=== PATIENT | female | born 1935 | race Caucasian/White ===

== ENCOUNTER 2017-09-05 10:00 | Inpatient (IN) | payer MEDICARE, MEDICAID ==
[~2017-09-05] VITALS: Ht 152.4 cm; Wt 46.8 kg
--- OUTSIDE RECORDS SUMMARY | 2017-09-05 12:30 | XMS REPORT | Continuity of Care Document ---
Author Author [facility] Organization [facility] Address Unknown Phone Unavailable Allergies There is no data. Medications There is no data. Problems Date Dx Coded Attending Type Code Diagnosis Diagnosed By 11/25/2014 JODY PRUCELL DO Ot 276.8 12/15/2014 JODY PURCELL DO Ot 401.9 02/25/2015 PRATIMA AU MD Ot R00.2 02/25/2015 PRATIMA AU MD Ot R07.89 02/25/2015 PRATIMA AU MD Ot R09.89 02/25/2015 PRATIMA AU MD Ot R53.83 03/31/2015 PRATIMA AU MD Ot R00.2 03/31/2015 PRATIMA AU MD Ot R07.89 03/31/2015 PRATIMA AU MD Ot R09.89 03/31/2015 PRATIMA AU MD Ot R53.83 Procedures There is no data. Results There is no data. Encounters ACCT No. Visit Date/Time Discharge Status Pt. Type Provider Facility Loc./Unit Complaint [id number] 03/10/2015 09:32:00 03/10/2015 23:59:59 CLS Outpatient PRATIMA AU MD [facility] CARD [id number] 02/05/2015 11:05:00 02/05/2015 23:59:59 CLS Outpatient PRATIMA AU MD [facility] LAB [id number] 11/04/2014 12:27:00 11/04/2014 23:59:59 CLS Outpatient JODY PURCELL DO [facility] LAB [id number] 10/27/2014 12:34:00 10/27/2014 23:59:59 CLS Outpatient JODY PURCELL DO [facility] LAB
--- OUTSIDE RECORDS SUMMARY | 2017-09-05 12:30 | XMS REPORT | Clinical Summary ---
Author Author [facility] Organization [facility] Address Unknown Phone Unavailable Care Team Providers Care Fabricator Artificial Breast Name Role Phone Jesenia Gomez MD Unavailable Unavailable Mirian Castro MD PCP Source Comments Some departments are not documenting in the electronic medical record. If you do not see the information that you expected, contact Release of Information in the Health Information Management department at [phone] for further assistance in locating additional records.[facility] Allergies Active Allergy Reactions Severity Noted Date Comments Amoxicillin ANXIETY 01/30/2014 Aspirin 12/08/2004 Allergy recorded in SMS: ASA Cephalexin 12/08/2004 Allergy recorded in SMS: CEPHALEXIN Epinephrine 12/08/2004 Allergy recorded in SMS: EPINEPHRINE Erythromycin 12/08/2004 Allergy recorded in SMS: EMYCIN Hydrocodone-Acetaminophen 12/08/2004 Allergy recorded in SMS: VICODAN Lactose 12/08/2004 Allergy recorded in SMS: LACTOSE Morphine 10/26/2008 Mupirocin 10/26/2008 Nickel 10/26/2008 Ointment,White (Obsolete) 10/26/2008 MUPINICEN OINTMENT Pentazocine Lactate 10/26/2008 Polyethylene Glycol 10/26/2008 Propoxyphene 10/26/2008 Sms Unclassified Drug 12/08/2004 Allergy recorded in SMS: BISULBIES Tripelennamine 12/08/2004 Allergy recorded in SMS: CHLOR-TRIMENTIN Current Medications Prescription Sig. Disp. Refills Start End Date Status Date vitamins, B complex Take 1 Tab by mouth Active (VITAMIN B COMPLEX) Tab Daily. Ascorbic Acid (VITAMIN C) Take by mouth Daily. Active 1,000 mg Tab ERGOCALCIFEROL (VITAMIN D Take by mouth Daily. Active PO) CALCIUM CARBONATE/MAG Take by mouth. Active CARB (CALCIUM & MAGNESIUM CARBONATES PO) Active Problems Problem Noted Date Osteoporosis 05/21/2009 Overview: 01/29/2014 She broke her hip about a year ago and has had a "partial" replacement. Still has pain in her left thigh. Still not taking anything for osteoporosis. Not exercising. Breast cancer ([facility]) 10/26/2008 Overview: (HPI entered by: Chaim Burnett MD) DIAGNOSIS: [id number], ER/NJ positive, HER-2/renetta negative, infiltrating ductal carcinoma of the right breast. PAST THERAPY: She had a right lumpectomy, sentinel lymph node biopsy, brachytherapy and tamoxifen for about two weeks. Date of diagnosis was 12/18/01. PRESENT THERAPY: Observation. 01/29/2014 She had an emergent mammogram as her primary felt something. Her exam today shows no recurrence and both ultrasound and mammogram are negative. I have offered her survivors clinic and she declined. I will see her in a year with imaging. She has dense breasts so ultrasound is done. 12/24/2014 She had another emergent mammogram as she thought she felt something in her right breast. She felt it as she was having some pain with movement of her arm which has now resolved. Mammogram and ultrasound were fine. Currently BRENDA. Will see in a year with repeat mammogram and ABUS. Resolved Problems Problem Noted Date Resolved Date Other screening mammogram 03/14/2007 05/21/2009 Immunizations Name Dates Previously Given Next Due Pneumococcal Vaccine 05/21/2009 (23-[facility] Adult) Social History Tobacco Use Types Packs/Day Years Used Date Never Smoker Sex Assigned at Date Recorded Not on file Last Filed Vital Signs Vital Sign Reading Time Taken Blood Pressure 141/68 12/24/2014 4:25 PM CDT Pulse 75 12/24/2014 4:25 PM CDT Temperature 36.7 C (98.1 F) 12/24/2014 4:25 PM CDT Respiratory Rate - - Oxygen Saturation 100% 12/24/2014 4:25 PM CDT Inhaled Oxygen - - Concentration Weight 45.5 kg (100 lb 3.2 oz) 12/24/2014 4:25 PM CDT Height 152.4 cm (5') 12/24/2014 4:25 PM CDT Body Mass Index 19.57 12/24/2014 4:25 PM CDT Plan of Treatment Health Maintenance Due Date Last Done Comments PHYSICAL (COMPREHENSIVE) 1940 EXAM PERTUSSIS VACCINE 1944 TETANUS VACCINE 1950 SHINGLES VACCINE 1993 OSTEOPOROSIS SCREENING 1998 PNEUMONIA (PCV13/PPSV23) 05/21/2010 05/21/2009 VACCINES (2 of 2 - PCV13) INFLUENZA VACCINE 01/07/2018 Results Not on filefrom Last 3 Months
[2017-09-05 13:46] VITALS: BP 163/93
--- NOTE | 2017-09-05 14:32 | Occupational Therapy Eval ---
OT Evaluation-General/PLF Medical Diagnosis Admission Date September 05, 2017 at 12:00 Medical Diagnosis: Stress Fracture (Lower Extremity) Onset Date: September 05, 2017 Therapy Diagnosis Therapy Diagnosis: decr self care, weakness, decr funct mob, decr act amrit Precautions Precautions/Isolations: Fall Prevention, Standard Precautions Weight Bear Status Weight Bearing Restriction: Touch Toe Bearing Location Restriction: R LE Referral Physician: Mary Kate Referral Reason: Evaluation/Treatment Medical History Additional Medical History Not available at this time Current History Pt admitted to ARU post recent report that the hardware in her left hip is "loosening and settling" (per pt report). She also reports her ortho doctor feels she may have a stress fracture that is contributing to the hardware issue. She reports her doctor told her to use a walker and "try to keep the weight off her right leg." Pt reports she was having increased difficulty managing at home. Reviewed History: Yes (verbal) Social History Home: Single Level Current Living Status: Alone Entry Into Home: Stairs Without Railing ADL-Prior Level of Function ADL PLOF Comments Pt reported that she was previously able to manage all of her basic self care and also care for her home. She still drives DME/Equipment: Tub/Shower OT Current Status Subjective Pt seen in room, up in bathroom, agreeable to OT. Pain reported 0/10 while sitting Appearance Alert, cooperative Mental Status/Objective Patient Orientation: Person, Place, Time, Situation Current Glasses/Contacts: Yes Hearing Aids: No Dentures/Partials: No Hand Dominance: Left Upper Extremity ROM Grossly WFL bilat Upper Extremity Sensation No problems per patient report Upper Extremity Strength grossly 4/5 bilat ADL-Treatment ADL-Current Pt had toileted with PT but was not following weight bearing restrictions at the time. She also reported that she had dressed, bathed this morning but also with not following precautions. Pt needs to learn modified techniques for managing ADLs with toe touch weight bearing on R LE. Functional [place] Measure 0=Not Assessed/NA 4=Minimal Assistance 1=Total Assistance 5=Supervision or Setup 2=Maximal Assistance 6=Modified [place] 3=Moderate Assistance 7=Complete IndependenceIRFPAI Quality Coding Scale 6 Independent with activity with or without an assistive device 5 Patient requires set up or clean up by helper. Patient completes activity by themselves 4 Supervision or touching assist (CGA). [place] provide cues , steadying assist 3 The helper provides less than half the effort to complete the activity 2 The helper provides more than half the effort to complete the activity 1 Dependent. The helper does all the effort to complete an activity 7 Patient refused to complete or attempt activity 9 The patient did not perform the activity before the current illness or injury 88 Not attempted due to Medical conditions or safety concerns Eating (FIM): 7 (Pt was able to open packages, cut up food, feed herself. No dentures) Eating (QC): 6 Education OT Patient Education: Purpose of tx/functional activities, Rehab process Teaching Recipient: Patient Teaching Methods: Demonstration, Discussion Response to Teaching: Verbalize Understanding, Return Demonstration OT Short Term Goals Short Term Goals Time Frame: Sep 12, 2017 Toilet/Commode Transfer(FIM): 5 Additional Short Term Goals: 1-Demonstrate ADL Tasks, 2-Verbalize Understanding , 3-ImproveStrength/Félix 1=Demonstrate adherence to instructed precautions during ADL tasks. 2=Patient will verbalize/demonstrate understanding of assistive devices/ modifications for ADL. 3=Patient will improve strength/tolerance for activity to enable patient to perform ADL's. OT Spa Coordinator Goals Spa Coordinator Goals Time Frame: Sep 19, 2017 Eating (FIM): 7 Eating (QC): 6 Groomin Oral Hygiene (QC): 6 Bathing(FIM): 6 Shower/Bathe Self (QC): 6 Upper Body Dressing(FIM): 6 Upper Body Dressing (QC): 6 Lower Body Dressing(FIM): 6 Lower Body Dressing (QC): 6 On/Off Footwear (QC): 6 Toileting(FIM): 6 Toileting Hygiene (QC): 6 Toilet/Commode Transfer(FIM): 6 Toilet/Commode Transfer (QC): 6 Shower Transfer(FIM): 6 Additional Goals: 1-Demonstrate ADL Tasks, 2-Verbalize Understanding, 3- ImproveStrength/Félix 1=Demonstrate adherence to instructed precautions during ADL tasks. 2=Patient will verbalize/demonstrate understanding of assistive devices/ modifications for ADL. 3=Patient will improve strength/tolerance for activity to enable patient to perform ADL's. OT Education/Plan Problem List/Assessment Assessment: Decreased Activ Tolerance, Decreased UE Strength, Dependent Transfers, Impaired Funct Balance, Impaired Self-Care Skills Pt would benefit from skilled OT to increase her independence in basic self care to allow her to safely return home Discharge Recommendations Plan/Recommendations: Continue POC Treatment Plan/Plan of Care Treatment,Training & Education: Yes Patient would benefit from OT for education, treatment and training to promote independence in ADL's, mobility, safety and/or upper extremity function for ADL' s. Plan of Care: ADL Retraining, Functional Mobility, Group Exercise/Act as Ind ( education, exercise, functional activities, socialization), UE Funct Exercise/ Act, UE Neuromus Re-Ed/Coord Treatment Duration: Sep 19, 2017 Frequency: At least 5 of 7 days/Wk (IRF) Estimated Hrs Per Day: 1.5 hours per day Agreement: Yes Rehab Potential: Fair Time/GCodes Start Time: 12:45 Stop Time: 13:00 Total Time Billed (hr/min): 15 Billed Treatment Time visit, 15 minutes evaluation moderate intensity EUNICE DONNELLY OT September 05, 2017 14:32
--- NOTE | 2017-09-05 15:00 | ST Cognitive Linguistic Eval ---
Speech Evaluation-General Medical Diagnosis Stress Fracture (Lower Extremity) Therapy Diagnosis Therapy Diagnosis: Cognitive Linguistic Skills WNL Referral Referring Physician: Dr. Denzel Jolly Reason for Referral: Evaluation/Treatment Cognitive Evaluation Medical History Current History Per patient, she experienced a stress fracture "a week or so" ago. The patient reported she was having difficulty with compliance of her weight bearing status and was hopeful to gain strength through a rehabilitation program. Speech PLF-Current Status Prior Level of Function The patient denied prior challenges with speech, language, or cognition. Subjective The patient was seated upright in recliner upon entrance. The patient greeted the clinician and was agreeable to participation in the cognitive evaluation. Language Eval: Auditory Comprehends Simple Yes/No Ques: Functional Indent/Objects Multiple Manrique: Functional Ident/Pics in Multiple Manrique: Functional Follows 1-Step Commands: Functional Follows Complex Directions: Functional Follows General Conversations: Functional Language Eval: Verbal Language Completes Spontaneous Greeting: Functional Produces Auto, Serial Info: Functional Imitates Simple Words/Phrases: Functional Word Finding: Functional Requests Basic Needs: Functional States Basic Personal Info: Functional Expresses Complex Ideas: Functional Cognitive Patient Orientation The patient was independently oriented to month, year, day of week, and location. Objective Cognitive Domain Attention: WNL Memory: WNL Problem Solving: Functional Objective Impression The patient demonstrated cognitive linguistic skills within normal limits. Communication/Social Cognition Comprehension: 6 (Glasses.) Expression: 7 Social Interaction: 6 Problem Solvin Memory: 6 Speech Patient Assess Expression of Ideas/Wants: Expression (4) Understanding Verbal Content: Understands (4) Brief Interview-Mental Status: Yes Repetition of Three Words: Three (3) Temporal Orientation: Year: Correct (3) Temporal Orientation: Month: Accurate within 5 days(2) Temporal Orientation: Day: Correct (1) Recall : Wear to say "Sock": No, could not recall (0) Recall : Color: Yes, no cue required (2) Recall : Bed: Yes, no cue required (2) Speech-Plan Treatment Plan Speech Therapy Treatment Plan: Discontinue ST Evaluation, only. Frequency: Modified [place] (IRF) (No ST warranted.) Estimated Hrs Per Day: Other (No ST warranted.) Rehab Potential: Fair Safety Risks/Education Teaching Recipient: Patient Teaching Methods: Discussion Response to Teaching: Verbalize Understanding Education Topics Provided: Results, Recommendations, Plan of Care Time Speech Therapy Time In: 14:15 Speech Therapy Time Out: 14:30 Total Billed Time: 15 Billed Treatment Time 1, MITCH OLIVERA September 05, 2017 15:00
[2017-09-05 15:13] LABS: MEAN PLATELET VOLUME 11.2 FL (7.4-10.4); RED BLOOD COUNT 4.28 10^6/uL (4.35-5.85); RED CELL DISTRIBUTION WIDTH 14.1 % (10.0-14.5); WHITE BLOOD COUNT 5.6 10^3/uL (4.3-11.0)
--- NOTE | 2017-09-05 15:15 | Therapy Group Daily Note ---
Therapy Daily Group Note Exercises LE Seated Exercise, UE Exercise Other/Notes Pt ambulated using FWW to OT/PT group in [facility]. Group consisted of introductions (name, place, pt to pt questions), socialization, UE/LE seated exercises (pt led), education on car transfers and walker safety. Pt was able to introduce self appropriately and rolled dice for a question to ask peer. Was able to turn choose peer to ask question too. Pt was able to lead a seated exercises and complete others without difficulty. Pt was attentive through education. Pt contributed to conversations throughout group. Pt ambulated back to room using FWW and sat in recliner after group. Call light/phone in reach. All needs met in room. Start Time: 13:00 Stop Time: 14:15 Total Billed Treatment Time: 75 Total Billed Treatment 1-GRP RACHEL SANABRIA September 05, 2017 15:15
[2017-09-05 15:38] LABS: ALANINE AMINOTRANSFERASE 27 U/L (0-55); ALKALINE PHOSPHATASE 81 U/L (40-136); BILIRUBIN,TOTAL 0.4 MG/DL (0.1-1.0); BUN/CREATININE RATIO 30; CALCIUM 9.8 MG/DL (8.5-10.1); CARBON DIOXIDE 24 MMOL/L (21-32); CHLORIDE 101 MMOL/L (98-107); CREATININE SERUM 0.87 MG/DL (0.60-1.30); GFR ESTIMATED > 60; GLUCOSE 101 MG/DL (70-105); SODIUM 135 MMOL/L (135-145); TOTAL PROTEIN 7.5 GM/DL (6.4-8.2)
--- NOTE | 2017-09-05 16:04 | Physical Therapy Evaluation ---
PT Evaluation-General Medical Diagnosis Admission Date September 05, 2017 at 12:00 Medical Diagnosis: Stress Fracture (Lower Extremity) Onset Date: September 05, 2017 Therapy Diagnosis Therapy Diagnosis: weakness; abn gait Precautions Precautions/Isolations: Standard Precautions Weight Bear Status Right Lower Extremity: Right Touch Toe Bearing Left Lower Extremity: Left Full Weight Bearing Referral Physician: Hugo Centeno Reason for Referral: Evaluation/Treatment Medical History Additional Medical History No additional medical history available at this time Current History Pt admitted to ARU post recent report that the hardware in her left hip is "loosening and settling" (per pt report). She also reports her ortho doctor feels she may have a stress fracture that is contributing to the hardware issue. She reports her doctor told her to use a walker and "try to keep the weight off her right leg." Pt reports she was having increased difficulty managing at home. Social History Home: Single Level Current Living Status: Alone Entry Into Home: Stairs Without Railing (but she reports she has things to hold on to) Prior/Core FIM Prior Level of Function Functional [place] Measure 0=Not Assessed/NA 4=Minimal Assistance 1=Total Assistance 5=Supervision or Setup 2=Maximal Assistance 6=Modified [place] 3=Moderate Assistance 7=Complete [place] Bed Mobility: 7 Transfers (B,C,W/C) (FIM): 7 Gait: 6 (used a SPC) pt able to ambulate community distances as well as drive. She was mod indep in her home as well. PT Evaluation-Current Subjective Agreeable to PT. Reports she has been using a cane and a walker at home. Pain Numeric Pain Scale: 0-No Pain Location: No Pain Reported Objective Patient Orientation: Person, Place, Time, Situation Problem Solving: Fair ROM/Strength ROM Lower Extremities WFL Strenght Lower Extremities B LE strength is grossly 4/5 throughout Integumentary/Posture Integumentary Refer to nursing notes. Bowel Incontinence: No Bladder Incontinence: Yes Posture normal and symmetrical Neuromuscular (Tone, Coordination, Reflexes) no noted functional deficits Sensory Vision: Functional Hearing: Functional Hand Dominance: Right Sensation Right Lower Extremit: Intact Sensation Left Lower Extremity: Intact Transfers Functional [place] Measure 0=Not Assessed/NA 4=Minimal Assistance 1=Total Assistance 5=Supervision or Setup 2=Maximal Assistance 6=Modified [place] 3=Moderate Assistance 7=Complete IndependenceIRFPAI Quality Coding Scale 6 Independent with activity with or without an assistive device 5 Patient requires set up or clean up by helper. Patient completes activity by themselves 4 Supervision or touching assist (CGA). [place] provide cues , steadying assist 3 The helper provides less than half the effort to complete the activity 2 The helper provides more than half the effort to complete the activity 1 Dependent. The helper does all the effort to complete an activity 7 Patient refused to complete or attempt activity 9 The patient did not perform the activity before the current illness or injury 88 Not attempted due to Medical conditions or safety concerns Transfers (B, C, W/C) (FIM): 5 Roll Left to Right (QC): 6 bed t/f WC(FIM only if WC use): 5 Sit to Lying (QC): 6 Lying to Sitting/Side of Bed(Q: 6 Sit to Stand (QC): 5 Chair/Bsj-vt-Nvsws Xfer(QC): 5 Car Transfer (QC): 4 Pt is SBA with transfers due to need for cues to maintain TTWB status. Pt tends to put weight through her right LE in standing; but able to correct with cuing. Gait Does the Patient Walk?: Yes Anticipated Mode of Locomotion: Walk Gait (FIM): 2 Distance (FIM): 8=931-37 ft Walk 10 feet (QC): 4 Walk 50 ft with 2 Turns(QC): 4 (CGA and heavy cues to maintain TTWB status) Walk 150 ft (QC): 88 (due to TTWB status; unable to go that far. ) Walking 10ft/uneven surface-QC: 4 Distance: 40 ft Gait Level of Assist: 4 (CGA with heavy cues for TTWB status) Gait Persons Needed: 1 Gait Assistive Device: FWW Comments/Gait Description Pt presented to our unit from transport here by her brother. Upon entering the unit, she was using a SPC and ambulating without assist and putting full weight through her right LE; however, when pt instructed in TTWB and work on maintaining this WB status, her safety and indep level decreased. She was educated in and explained the reasoning for TTWB and she verbalized understainding. In gait training, she preferrred to keep her right foot up in a NWB position, as she remarked it was easier to maintian than TTWB. Distance decreased with TTWB as her UE fatigues with hopping. Stairs Stairs (FIM): 1 #of Steps: 1 Level of Assist: 2 1 Step (curb) (QC): 2 4 Steps (QC): 88 Assistive Device: Walker 12 Steps (QC): 88 max asssist required due to TTWB status. Balance Sitting Static: Good Sitting Dynamic: Good Standing Static: Good Standing Dynamic: Fair Picking up an Object (QC): 88 Assessment/Needs Pt presents with reports of loosening of hardware in right hip. she reports she was told to "try to keep her weight off her right LE", but has been using a cane for ambulation. In a full weight bearing manner (as she presented to the unit), she is mod indep with gait and transfers. However, when instructed in and performance of TTWB, her ability to safely and effectively mobilize decreased. She has decreased functional activity tolerance to hopping and impaired functional balance and strength. She will beneift from skilled PT intervention to address TTWB status and performance of mobility, transfers and safety at this level. Rehab Potential: Good PT Short Term Goals Short Term Goals Time Frame: Sep 12, 2017 Transfers (B,C,W/C) (FIM): 6 Gait (FIM): 4 Gait Assistive Device: FWW PT Aviation Manager Goals Intermediate Goals PT Aviation Manager Goals Time Frame: Sep 20, 2017 Transfers (B,C,W/C) (FIM): 7 Sit to Lying (QC): 6 Lying-Sitting on Side/Bed(QC): 6 Sit to Stand (QC): 6 Roll Left to Right (QC): 6 Chair/Kdi-ua-Ltnob Xfer(QC): 6 Car Transfer (QC): 6 Does the Patient Walk: Yes Gait (FIM): 5 (household exception) Gait distance (FIM): 4=240-53 ft Distance: 50 ft Walk 10 feet (QC): 6 Walk 10ft-Uneven Surface(QC): 6 Walk 50ft with 2 Turns (QC): 6 Walk 150 ft (QC): 9 (too far for her to hop) Gait Assistive Device: FWW Does the Pt use WC or Scooter?: No Stairs (FIM): 5 (household exception) # of Steps: 4 1 Step (curb) (QC): 6 4 Steps (QC): 6 12 Steps (QC): 88 Picking up an Object (QC): 4 Pt to be at a household level for functional gait and transfers with maintenance of TTWB status PT Plan Problem List Problem List: Activity Tolerance, Functional Strength, Safety, Balance, Gait, Transfer, Bed Mobility Treatment/Plan Treatment Plan: Continue Plan of Care Treatment Plan: Bed Mobility, Education, Functional Activity Félix, Functional Strength, Group Therapy, Gait, Safety, Therapeutic Exercise, Transfers Treatment Duration: Sep 20, 2017 Frequency: At least 5 of 7 days/Wk (IRF) Estimated Hrs Per Day: 1.5 hours per day Patient and/or Family Agrees t: Yes Safety Risks/Education Patient Education: Reviewed Precautions (TTWB), Safety Issues Teaching Recipient: Patient Teaching Methods: Demonstration, Discussion Response to Teaching: Reinforcement Needed Time/GCodes Time In: 1215 Time Out: 1245 Total Billed Treatment Time: 30 Total Billed Treatment visit EVM 30 RACHEL DAVIS PT September 05, 2017 16:03
--- NOTE | 2017-09-05 16:28 | Occupational Ther Daily Note ---
OT Current Status-Daily Note Subjective Pt seen in room, up in recliner, agreeable to OT. No pain mentioned. Appearance Alert, cooperative Mental Status/Objective Functional [place] Measure 0=Not Assessed/NA 4=Minimal Assistance 1=Total Assistance 5=Supervision or Setup 2=Maximal Assistance 6=Modified [place] 3=Moderate Assistance 7=Complete [place] ADL-Treatment Reviewed instruction from PT on weight bearing with FWW with patient and how it applies to toileting. She has determined that she is better able to comply with restrictions if she doesn't put any weight on R UE. She was able to get up from recliner with SBA, FWW, pushing up with arms. She walked slowly with CGA, FWW to bathroom (about 15-20 feet to toilet), following WB status. She needed min assist and skilled cues for hand placement to get on/off tall toilet, with grab bar on L side. Placed BSC over toilet, with arms on both sides, and she was able to come up off BSC with SBA, FWW, cues for hand placement. Pt walked back to room with CGA, FWW. Pt educ to call for help for toileting and other activities where she would be walking. Ct educ that she could have a chair with arms in the bathroom to use for sitting on to brush teeth, comb hair,etc. Education to radiology staff on patient precautions and transfer technique. Pt left room with radiology at end of tx. Functional [place] Measure 0=Not Assessed/NA 4=Minimal Assistance 1=Total Assistance 5=Supervision or Setup 2=Maximal Assistance 6=Modified [place] 3=Moderate Assistance 7=Complete IndependenceIRFPAI Quality Coding Scale 6 Independent with activity with or without an assistive device 5 Patient requires set up or clean up by helper. Patient completes activity by themselves 4 Supervision or touching assist (CGA). [place] provide cues , steadying assist 3 The helper provides less than half the effort to complete the activity 2 The helper provides more than half the effort to complete the activity 1 Dependent. The helper does all the effort to complete an activity 7 Patient refused to complete or attempt activity 9 The patient did not perform the activity before the current illness or injury 88 Not attempted due to Medical conditions or safety concerns Toilet/Commode Transfer (FIM): 4 Toilet Transfer (QC): 4 Education OT Patient Education: Modified ADL techniques, Progress toward Goal/Update tx plan, Purpose of tx/functional activities, Use of adapted equipment Teaching Recipient: Patient Teaching Methods: Demonstration, Discussion Response to Teaching: Verbalize Understanding, Return Demonstration, Reinforcement Needed OT Short Term Goals Short Term Goals Time Frame: Sep 12, 2017 Toilet/Commode Transfer(FIM): 5 Additional Short Term Goals: 1-Demonstrate ADL Tasks, 2-Verbalize Understanding , 3-ImproveStrength/Félix 1=Demonstrate adherence to instructed precautions during ADL tasks. 2=Patient will verbalize/demonstrate understanding of assistive devices/ modifications for ADL. 3=Patient will improve strength/tolerance for activity to enable patient to perform ADL's. OT Detention Goals Real Estate Firm Manager Goals Time Frame: Sep 19, 2017 Eating (FIM): 7 Eating (QC): 6 Groomin Oral Hygiene (QC): 6 Bathing(FIM): 6 Shower/Bathe Self (QC): 6 Upper Body Dressing(FIM): 6 Upper Body Dressing (QC): 6 Lower Body Dressing(FIM): 6 Lower Body Dressing (QC): 6 On/Off Footwear (QC): 6 Toileting(FIM): 6 Toileting Hygiene (QC): 6 Toilet/Commode Transfer(FIM): 6 Toilet/Commode Transfer (QC): 6 Shower Transfer(FIM): 6 Additional Goals: 1-Demonstrate ADL Tasks, 2-Verbalize Understanding, 3- ImproveStrength/Félix 1=Demonstrate adherence to instructed precautions during ADL tasks. 2=Patient will verbalize/demonstrate understanding of assistive devices/ modifications for ADL. 3=Patient will improve strength/tolerance for activity to enable patient to perform ADL's. OT Education/Plan Problem List/Assessment Pt would benefit from skilled OT to increase her independence in basic self care to allow her to safely return home Discharge Recommendations Plan/Recommendations: Continue POC Treatment Plan/Plan of Care Patient would benefit from OT for education, treatment and training to promote independence in ADL's, mobility, safety and/or upper extremity function for ADL' s. Plan of Care: ADL Retraining, Functional Mobility, Group Exercise/Act as Ind ( education, exercise, functional activities, socialization), UE Funct Exercise/ Act, UE Neuromus Re-Ed/Coord Treatment Duration: Sep 19, 2017 Frequency: At least 5 of 7 days/Wk (IRF) Estimated Hrs Per Day: 1.5 hours per day Agreement: Yes Rehab Potential: Fair Time/GCodes Start Time: 15:15 Stop Time: 15:30 Total Time Billed (hr/min): 15 Billed Treatment Time visit, 15 minutes EUNICE GONZALEZ OT September 05, 2017 16:28
[2017-09-05 16:33] VITALS: BP 157/73
--- NOTE | 2017-09-05 16:39 | Diagnostic Imaging Report ---
Indication: Lower respiratory infection. PA and lateral chest Heart size and pulmonary vascularity are normal. Lungs are clear. There are no effusions or pneumothoraces. Impression: Negative chest. Dictated by: Dictated on workstation # [id number]
--- NOTE | 2017-09-05 16:43 | Diagnostic Imaging Report ---
INDICATION: History of a right hip replacement approximately 5 years ago. Unable to bear weight on right lower extremity. TECHNIQUE: AP pelvis along with 2 views right hip at 4:01 PM CORRELATION STUDY: None FINDINGS: Postop change of unipolar hip arthroplasty is present. Hardware appearing to be intact. Slight thinning of the outer lateral cortex is noted proximally. Also slight thinning of the cortex near the distal prosthesis posteriorly. A definitive loosening however is otherwise suggested. No acute fracture. Left hip joint fairly well-maintained. The remainder of the pelvis is intact with pectineal lines and obturator rings preserved. There is degenerative change visualized lower lumbar spine with asymmetric disc space during along the left aspect of L4-5 and L5-S1 level endplate sclerosis. 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 No definitive evidence for fracture or loosening. However, correlation with previous radiographs would be recommended if available. Dictated by: Dictated on workstation # [id number]
[2017-09-05] MEDS ORDERED: RT-ALBUTEROL SULF 2.5 MG/3 ML PRE-MIX VIAL ONE (19:08)
--- NOTE | 2017-09-05 19:10 | History & Physicial ---
History of Present Illness History of Present Illness Reason for visit/HPI Patient was seen by orthopedic on 08/01/19 18. 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 Patient has new onset of right thigh pain. X-ray at that time showed evidence of glucose them with remodeling of the proximal femur radiolucent lines around the proximal cement mantle and offset between the tip of the stem in the distal mantle Date of Admission September 05, 2017 at 12:00 Time Seen by Provider: 19:05 I consulted on this patient on 09/05/17 19:05 Attending Physician Denzel Jolly MD Admitting Physician Leandro Hartmann DO Consult Allergies and Home Medications Patient Home Medication List Home Medication List Reviewed: Yes Past Znurmcc-Jajjxx-Pschal Hx Patient Social History Employed/Student: retired Surgeries Breast, Hysterectomy Constitutional: weakness EENTM: other (Allergies with nose running) Respiratory: cough, other (Bronchitis getting better) Cardiovascular: no symptoms reported Gastrointestinal: no symptoms reported Genitourinary: no symptoms reported Physical Exam Vital Signs Vital Signs - First Documented 09/05/17 13:46 Temp 97.5 Pulse 71 Resp 16 B/P (MAP) 163/93 (116) Pulse Ox 97 O2 Delivery Room Air Capillary Refill : General Appearance: No Apparent Distress, Thin Eyes: Bilateral Eye Normal Inspection HEENT: Normal ENT Inspection Neck: Full Range of Motion, Normal Inspection Respiratory: Other (Congestion) Cardiovascular: Regular Rate, Rhythm, No Murmur Gastrointestinal: Non Tender, Soft Assessment/Plan Assessment and Plan Orthopedic problem. Pain in the right hip. Bronchitis last week. Sinusitis. Loose exam with femur Admission Diagnosis Admission Status: Inpatient Order (span 2 midnights) Reason for Inpatient Admission: Difficulty in ambulating. Right hip pain. Bipolar prosthesis right hip. LEANDRO HARTMANN DO September 05, 2017 19:10
[2017-09-05] MEDS: RT-ALBUTEROL SULF 2.5 MG/3 ML PRE-MIX VIAL INH SCH (21:34)
[2017-09-05] MEDS ORDERED: RT-ALBUTEROL SULF 2.5 MG/3 ML PRE-MIX VIAL INH SCH (22:00)
[2017-09-06 06:00] VITALS: BP 157/69
--- NOTE | 2017-09-06 08:37 | Progress Note (SOAP) ---
Subjective Time Seen by Provider: 08:30 Subjective/Events-last exam Sinuses doing better this morning with it treatments. Patient breathing better today with the treatments. Patient To do bone scan.have patient toe-touch weightbearing consult with orthopedics. Objective Exam Vital Signs Date Time Temp Pulse Resp B/P (MAP) Pulse Ox O2 Delivery O2 Flow Rate FiO2 09/06/17 06:00 97.9 64 17 157/69 (98) 97 Room Air 09/05/17 21:35 95 Room Air 09/05/17 21:00 95 Room Air 09/05/17 16:33 96.4 71 16 157/73 (101) 98 Room Air 09/05/17 15:30 Room Air 09/05/17 13:46 97.5 71 16 163/93 (116) 97 Room Air I & O 09/06/17 07:00 Intake Total 300 ml Balance 300 ml Capillary Refill : General Appearance: No Apparent Distress, Thin Results Lab Laboratory Tests 09/05/17 15:06: White Blood Count 5.6, Red Blood Count 4.28L, Hemoglobin 13.0, Hematocrit 39, Mean Corpuscular Volume 90, Mean Corpuscular Hemoglobin 30, Mean Corpuscular Hemoglobin Concent 34, Red Cell Distribution Width 14.1, Platelet Count 235, Mean Platelet Volume 11.2H, Sodium Level 135, Potassium Level 4.0, Chloride Level 101, Carbon Dioxide Level 24, Anion Gap 10, Blood Urea Nitrogen 26H, Creatinine 0.87, Estimat Glomerular Filtration Rate > 60, BUN/Creatinine Ratio 30, Glucose Level 101, Calcium Level 9.8, Total Bilirubin 0.4, Aspartate Amino Transf (AST/SGOT) 27, Alanine Aminotransferase (ALT/SGPT) 27, Alkaline Phosphatase 81, Total Protein 7.5, Albumin 4.0 Assessment/Plan Assessment/Plan Assess & Plan/Chief Complaint Right hip problem. To be evaluated by orthopedic Clinical Quality Measures Admission Status Admission Dx Orthopedic problem. Pain in the right hip. Bronchitis last week. Sinusitis. Loose exam with femur DVT/VTE Risk/Contraindication: Risk Factor Score Per Nursin RFS Level Per Nursing on Admit: 2=Moderate MAG LI DO September 06, 2017 08:37
--- NOTE | 2017-09-06 09:17 | Physical Therapy Daily Note ---
PT Daily Note-Current Subjective Agreeble to PT. no complaints. Mental Status Patient Orientation: Person, Place, Time, Situation Transfers Functional [place] Measure 0=Not Assessed/NA 4=Minimal Assistance 1=Total Assistance 5=Supervision or Setup 2=Maximal Assistance 6=Modified [place] 3=Moderate Assistance 7=Complete IndependenceIRFPAI Quality Coding Scale 6 Independent with activity with or without an assistive device 5 Patient requires set up or clean up by helper. Patient completes activity by themselves 4 Supervision or touching assist (CGA). [place] provide cues , steadying assist 3 The helper provides less than half the effort to complete the activity 2 The helper provides more than half the effort to complete the activity 1 Dependent. The helper does all the effort to complete an activity 7 Patient refused to complete or attempt activity 9 The patient did not perform the activity before the current illness or injury 88 Not attempted due to Medical conditions or safety concerns Weight Bearing Right Lower Extremity: Right Touch Toe Bearing Left Lower Extremity: Left Full Weight Bearing Treatments Spent much time educating and practicing TTWB right LE. Demonstrated what it looks like and had pt practice ambulating with TTWB. She notes she prefers to hold her foot up rather than touch her toes. Pt was able to ambulate 40 ft with FWW in a NWB fashion. Assessment After much education and demonstration, pt seemed to understand TTWB and was able to maintain it for a short distance. PT Short Term Goals Short Term Goals Time Frame: Sep 12, 2017 Transfers (B,C,W/C) (FIM): 6 Gait (FIM): 4 Gait Assistive Device: FWW PT Demolition Specialist Goals Demolition Specialist Goals PT Demolition Specialist Goals Time Frame: Sep 20, 2017 Transfers (B,C,W/C) (FIM): 7 Sit to Lying (QC): 6 Lying-Sitting on Side/Bed(QC): 6 Sit to Stand (QC): 6 Roll Left to Right (QC): 6 Chair/Byr-vv-Jeter Xfer(QC): 6 Car Transfer (QC): 6 Does the Patient Walk: Yes Gait (FIM): 5 (household exception) Gait distance (FIM): 2=619-21 ft Distance: 50 ft Walk 10 feet (QC): 6 Walk 10ft-Uneven Surface(QC): 6 Walk 50ft with 2 Turns (QC): 6 Walk 150 ft (QC): 9 (too far for her to hop) Gait Assistive Device: FWW Does the Pt use WC or Scooter?: No Stairs (FIM): 5 (household exception) # of Steps: 4 1 Step (curb) (QC): 6 4 Steps (QC): 6 12 Steps (QC): 88 Picking up an Object (QC): 4 PT Plan Problem List Problem List: Activity Tolerance, Functional Strength, Safety, Balance, Gait, Transfer, Bed Mobility Treatment/Plan Treatment Plan: Continue Plan of Care Treatment Plan: Bed Mobility, Education, Functional Activity Félix, Functional Strength, Group Therapy, Gait, Safety, Therapeutic Exercise, Transfers Treatment Duration: Sep 20, 2017 Frequency: At least 5 of 7 days/Wk (IRF) Estimated Hrs Per Day: 1.5 hours per day Patient and/or Family Agrees t: Yes Safety Risks/Education Patient Education: Reviewed Precautions Teaching Recipient: Patient Teaching Methods: Demonstration, Discussion Response to Teaching: Reinforcement Needed Time/GCodes Time In: 1430 Time Out: 1500 Total Billed Treatment Time: 30 Total Billed Treatment This is a late entry for visit date 09/05/17 visit GT 30 RACHEL DAVIS PT September 06, 2017 09:17
[2017-09-06] MEDS ORDERED: CHOL400C9 PO ×2 (09:28)
[2017-09-06] MEDS ORDERED: VITA1TAB17 PO (09:30)
[2017-09-06] MEDS ORDERED: ASCO-262 PO (09:30)
[2017-09-06] MEDS ORDERED: CALC-472 PO ×2 (09:30)
--- NOTE | 2017-09-06 10:39 | Physical Therapy Daily Note ---
PT Daily Note-Current Subjective Agreeable to PT. Pt reports she only has sandles to wear at home. Pt expresses concern as to how she will grocery shop and cook at home. Pain Numeric Pain Scale: 2 Location: Right Location Body Site: Thigh Pain Description: Ache (sore) Mental Status Patient Orientation: Person, Place, Time, Situation Transfers Functional [place] Measure 0=Not Assessed/NA 4=Minimal Assistance 1=Total Assistance 5=Supervision or Setup 2=Maximal Assistance 6=Modified [place] 3=Moderate Assistance 7=Complete IndependenceIRFPAI Quality Coding Scale 6 Independent with activity with or without an assistive device 5 Patient requires set up or clean up by helper. Patient completes activity by themselves 4 Supervision or touching assist (CGA). [place] provide cues , steadying assist 3 The helper provides less than half the effort to complete the activity 2 The helper provides more than half the effort to complete the activity 1 Dependent. The helper does all the effort to complete an activity 7 Patient refused to complete or attempt activity 9 The patient did not perform the activity before the current illness or injury 88 Not attempted due to Medical conditions or safety concerns Transfers (B, C, W/C) (FIM): 6 Roll Left to Right (QC): 6 Supine to/from Sit: 7 Sit to/from Stand: 6 Sit to Lying (QC): 6 Sit to Stand (QC): 6 (uses the sink to pull up at times. ) Chair/Yza-mr-Uaqvq Xfer(QC): 6 (FWW) Weight Bearing Right Lower Extremity: Right Touch Toe Bearing Left Lower Extremity: Left Full Weight Bearing Per physician office in [place] (Dr. Kim) "limit WB on the right LE" Gait Training Does the Patient Walk?: Yes Gait (FIM): 2 Distance (FIM): 1=up to 49 ft Distance: 40 ft x 4 Gait Assistive Device: FWW Ambulated short distances with fWW, TTWB right with SBA for safety. Pt able to maintian TTWB status but fatigues quickly. Actually, she prefers to NWB so she holds her foot up. Exercises Supine Ex: Ankle pumps (x15), Quad Set (x15), Heel Slides (x10), Short Arc Quads (x15), Straight leg raise (x5), Hip abd/add LE ther ex to facilitate LE strength for improved functional mobility. Treatments Multiple sit to stand transfers at the sink for brushing her teeth and washing her hands and face; this focused on standing functional static and dynamic balance to perform self care activities. Assessment Current Status: Good Progress Pt doing well with WB status. She is concerned how she will manage at home. PT Short Term Goals Short Term Goals Time Frame: Sep 12, 2017 Transfers (B,C,W/C) (FIM): 6 Gait (FIM): 4 Gait Assistive Device: FWW PT Spout Tender Goals Half-Way Goals PT Spout Tender Goals Time Frame: Sep 20, 2017 Transfers (B,C,W/C) (FIM): 7 Sit to Lying (QC): 6 Lying-Sitting on Side/Bed(QC): 6 Sit to Stand (QC): 6 Roll Left to Right (QC): 6 Chair/Fcd-cb-Uruhz Xfer(QC): 6 Car Transfer (QC): 6 Does the Patient Walk: Yes Gait (FIM): 5 (household exception) Gait distance (FIM): 5=543-09 ft Distance: 50 ft Walk 10 feet (QC): 6 Walk 10ft-Uneven Surface(QC): 6 Walk 50ft with 2 Turns (QC): 6 Walk 150 ft (QC): 9 (too far for her to hop) Gait Assistive Device: FWW Does the Pt use WC or Scooter?: No Stairs (FIM): 5 (household exception) # of Steps: 4 1 Step (curb) (QC): 6 4 Steps (QC): 6 12 Steps (QC): 88 Picking up an Object (QC): 4 PT Plan Problem List Problem List: Activity Tolerance, Functional Strength, Safety, Balance, Gait, Transfer, Bed Mobility Treatment/Plan Treatment Plan: Continue Plan of Care Treatment Plan: Bed Mobility, Education, Functional Activity Félix, Functional Strength, Group Therapy, Gait, Safety, Therapeutic Exercise, Transfers Treatment Duration: Sep 20, 2017 Frequency: At least 5 of 7 days/Wk (IRF) Estimated Hrs Per Day: 1.5 hours per day Patient and/or Family Agrees t: Yes Safety Risks/Education Patient Education: Transfer Techniques, Reviewed Precautions, Safety Issues Teaching Recipient: Patient Teaching Methods: Demonstration, Discussion Response to Teaching: Reinforcement Needed Time/GCodes Time In: 920 Time Out: 1030 Total Billed Treatment Time: 70 Total Billed Treatment visit EX 25 NM 25 GT 20 RACHEL DAVIS PT September 06, 2017 10:39
[2017-09-06] MEDS ORDERED: MAG CARB PO SCH ×2 (12:00→18:00)
[2017-09-06] MEDS ORDERED: CALCIUM CARBONATE PO SCH ×2 (12:00→18:00)
[2017-09-06] MEDS ORDERED: [UNRECOGNIZED DRUG - OTHER] PO SCH (12:00)
[2017-09-06] MEDS: ASCORBIC ACID (VIT C) 500 MG TABLET PO SCH ×2 (12:34→21:48)
[2017-09-06] MEDS: VITAMIN D3 400 UNITS (CHOLECALCIFEROL) TABLET PO SCH ×2 (12:34→17:33)
--- NOTE | 2017-09-06 13:21 | Physical Therapy Daily Note ---
PT Daily Note-Current Subjective Agreeable to PT. Pain Location: Right Location Body Site: Thigh Pain Description: Ache (sore) Comment: applied a cold pack post treatment Transfers Functional [place] Measure 0=Not Assessed/NA 4=Minimal Assistance 1=Total Assistance 5=Supervision or Setup 2=Maximal Assistance 6=Modified [place] 3=Moderate Assistance 7=Complete IndependenceIRFPAI Quality Coding Scale 6 Independent with activity with or without an assistive device 5 Patient requires set up or clean up by helper. Patient completes activity by themselves 4 Supervision or touching assist (CGA). [place] provide cues , steadying assist 3 The helper provides less than half the effort to complete the activity 2 The helper provides more than half the effort to complete the activity 1 Dependent. The helper does all the effort to complete an activity 7 Patient refused to complete or attempt activity 9 The patient did not perform the activity before the current illness or injury 88 Not attempted due to Medical conditions or safety concerns Sit to stand with SBA x multiple attempts throughout the treatment. Toileted with SBA for transfers, clothing and pericare. Weight Bearing Right Lower Extremity: Right Touch Toe Bearing Left Lower Extremity: Left Full Weight Bearing Per physician office in [place] (Dr. Kim) "limit WB on the right LE" Gait Training Does the Patient Walk?: Yes Gait (FIM): 2 Gait Assistive Device: FWW 40 ft x 4 TTWB with SBA. Exercises NuStep Minutes: 5 (to increase functional strength.) NuStep Workload: 1 (no resistance; focus on using UE when pushing with the right LE. ) Treatments Attempted Nu Step due to physician noted that remarked pt could "limit weight bearing" through the right LE. Assessment Current Status: Good Progress Progressing with functional mobility. PT Short Term Goals Short Term Goals Time Frame: Sep 12, 2017 Transfers (B,C,W/C) (FIM): 6 Gait (FIM): 4 Gait Assistive Device: FWW PT Shelter Goals Shelter Goals PT Goods Layer Goals Time Frame: Sep 20, 2017 Transfers (B,C,W/C) (FIM): 7 Sit to Lying (QC): 6 Lying-Sitting on Side/Bed(QC): 6 Sit to Stand (QC): 6 Roll Left to Right (QC): 6 Chair/Hvy-gp-Tcpuh Xfer(QC): 6 Car Transfer (QC): 6 Does the Patient Walk: Yes Gait (FIM): 5 (household exception) Gait distance (FIM): 9=009-09 ft Distance: 50 ft Walk 10 feet (QC): 6 Walk 10ft-Uneven Surface(QC): 6 Walk 50ft with 2 Turns (QC): 6 Walk 150 ft (QC): 9 (too far for her to hop) Gait Assistive Device: FWW Does the Pt use WC or Scooter?: No Stairs (FIM): 5 (household exception) # of Steps: 4 1 Step (curb) (QC): 6 4 Steps (QC): 6 12 Steps (QC): 88 Picking up an Object (QC): 4 PT Plan Problem List Problem List: Activity Tolerance, Functional Strength, Safety Treatment/Plan Treatment Plan: Continue Plan of Care Treatment Plan: Bed Mobility, Education, Functional Activity Félix, Functional Strength, Group Therapy, Gait, Safety, Therapeutic Exercise, Transfers Treatment Duration: Sep 20, 2017 Frequency: At least 5 of 7 days/Wk (IRF) Estimated Hrs Per Day: 1.5 hours per day Patient and/or Family Agrees t: Yes Time/GCodes Time In: 1245 Time Out: 1315 Total Billed Treatment Time: 30 Total Billed Treatment visit FA 30 RACHEL DAVIS PT September 06, 2017 13:21
[2017-09-06] MEDS: RT-ALBUTEROL SULF 2.5 MG/3 ML PRE-MIX VIAL INH SCH ×2 (14:07→20:40)
--- NOTE | 2017-09-06 14:56 | Occupational Ther Daily Note ---
OT Current Status-Daily Note Subjective Pt seen in room, up in bed, agreeable to OT. No pain mentioned. Appearance Alert, cooperative Mental Status/Objective Functional [place] Measure 0=Not Assessed/NA 4=Minimal Assistance 1=Total Assistance 5=Supervision or Setup 2=Maximal Assistance 6=Modified [place] 3=Moderate Assistance 7=Complete [place] ADL-Treatment Pt moved supine to sit EOB without help. She got up to walk to bathroom with SBA and walked with FWW, maintaining WB status, with CGA/SBA. Shower transfer CGA, pt educ for technique. Pt washed/dried all areas except R foot and lower legs. Added long handled sponge with educ on use. Walked back to bed and dressed upper body with setup, min assist lower body, pt educ use of dressing stick and soft sock aid to put sock on R foot. Occas cues for weight bearing throughout. Functional [place] Measure 0=Not Assessed/NA 4=Minimal Assistance 1=Total Assistance 5=Supervision or Setup 2=Maximal Assistance 6=Modified [place] 3=Moderate Assistance 7=Complete IndependenceIRFPAI Quality Coding Scale 6 Independent with activity with or without an assistive device 5 Patient requires set up or clean up by helper. Patient completes activity by themselves 4 Supervision or touching assist (CGA). [place] provide cues , steadying assist 3 The helper provides less than half the effort to complete the activity 2 The helper provides more than half the effort to complete the activity 1 Dependent. The helper does all the effort to complete an activity 7 Patient refused to complete or attempt activity 9 The patient did not perform the activity before the current illness or injury 88 Not attempted due to Medical conditions or safety concerns Bathing (FIM): 4 (Pt educ use of long handled sponge to wash and dry LEs. Also had help to dry between toes R foot. Shower bench, grab bars, hand held shower) Shower/Bathe Self (QC): 3 Upper Body (FIM): 5 Upper Body Dressing (QC): 5 Lower Body Dressing (FIM): 4 (Sock aid, dressing stick) Lower Body Dressing (QC): 4 (Pt educ use of dressing stick, help) On/Off Footwear (QC): 3 (Help getting sock on/off R foot) Toileting (FIM): 4 (min assist sit to stand without BSC, SBA with BSC. Able to manage clothing otherwise and hygiene) Toileting Hygiene (QC): 3 Toilet/Commode Transfer (FIM): 5 (SBA, BSC over toilet) Education OT Patient Education: Modified ADL techniques, Progress toward Goal/Update tx plan, Purpose of tx/functional activities, Transfer techniques, Use of adapted equipment Teaching Recipient: Patient Teaching Methods: Demonstration, Discussion Response to Teaching: Verbalize Understanding, Return Demonstration, Reinforcement Needed OT Short Term Goals Short Term Goals Time Frame: Sep 12, 2017 Transfers (B,C,W/C) (FIM): 6 Toilet/Commode Transfer(FIM): 5 Additional Short Term Goals: 1-Demonstrate ADL Tasks, 2-Verbalize Understanding , 3-ImproveStrength/Félix 1=Demonstrate adherence to instructed precautions during ADL tasks. 2=Patient will verbalize/demonstrate understanding of assistive devices/ modifications for ADL. 3=Patient will improve strength/tolerance for activity to enable patient to perform ADL's. OT Detention Goals Frame Sample And Pattern Supervisor Goals Time Frame: Sep 19, 2017 Eating (FIM): 7 Eating (QC): 6 Groomin Oral Hygiene (QC): 6 Bathing(FIM): 6 Shower/Bathe Self (QC): 6 Upper Body Dressing(FIM): 6 Upper Body Dressing (QC): 6 Lower Body Dressing(FIM): 6 Lower Body Dressing (QC): 6 On/Off Footwear (QC): 6 Toileting(FIM): 6 Toileting Hygiene (QC): 6 Toilet/Commode Transfer(FIM): 6 Toilet/Commode Transfer (QC): 6 Shower Transfer(FIM): 6 Additional Goals: 1-Demonstrate ADL Tasks, 2-Verbalize Understanding, 3- ImproveStrength/Félix 1=Demonstrate adherence to instructed precautions during ADL tasks. 2=Patient will verbalize/demonstrate understanding of assistive devices/ modifications for ADL. 3=Patient will improve strength/tolerance for activity to enable patient to perform ADL's. OT Education/Plan Problem List/Assessment Pt would benefit from skilled OT to increase her independence in basic self care to allow her to safely return home Discharge Recommendations Plan/Recommendations: Continue POC Treatment Plan/Plan of Care Patient would benefit from OT for education, treatment and training to promote independence in ADL's, mobility, safety and/or upper extremity function for ADL' s. Plan of Care: ADL Retraining, Functional Mobility, Group Exercise/Act as Ind ( education, exercise, functional activities, socialization), UE Funct Exercise/ Act, UE Neuromus Re-Ed/Coord Treatment Duration: Sep 19, 2017 Frequency: At least 5 of 7 days/Wk (IRF) Estimated Hrs Per Day: 1.5 hours per day Agreement: Yes Rehab Potential: Good Time/GCodes Start Time: 08:15 Stop Time: 09:15 Total Time Billed (hr/min): 60 Billed Treatment Time visit, 60 minutes ADL EUNICE DONNELLY OT September 06, 2017 14:56
--- NOTE | 2017-09-06 15:08 | Occupational Ther Daily Note ---
OT Current Status-Daily Note Subjective Pt seen in room, up in recliner, agreeable to OT. No pain mentioned. Appearance Alert, cooperative Mental Status/Objective Functional [place] Measure 0=Not Assessed/NA 4=Minimal Assistance 1=Total Assistance 5=Supervision or Setup 2=Maximal Assistance 6=Modified [place] 3=Moderate Assistance 7=Complete [place] ADL-Treatment Pt education on different styles and types of rails that can be added to toilet at home and showed her pictures. Pt got up from recliner with SBA and walked with SBA to sink, where she stood to clean her teeth and wash hands, leaning aginst sink for balance. She maintained WB status while walking to w/c and was transported to gym per w/c. She did 10 minutes bilat UE exercise on arm bike set at 20W resistance, taking a brief recovery break. She was returned to her room, walked from doorway to bed with SBA, FWW and was able to get her legs into bed. pt left up in bed, all needs met. Functional [place] Measure 0=Not Assessed/NA 4=Minimal Assistance 1=Total Assistance 5=Supervision or Setup 2=Maximal Assistance 6=Modified [place] 3=Moderate Assistance 7=Complete IndependenceIRFPAI Quality Coding Scale 6 Independent with activity with or without an assistive device 5 Patient requires set up or clean up by helper. Patient completes activity by themselves 4 Supervision or touching assist (CGA). [place] provide cues , steadying assist 3 The helper provides less than half the effort to complete the activity 2 The helper provides more than half the effort to complete the activity 1 Dependent. The helper does all the effort to complete an activity 7 Patient refused to complete or attempt activity 9 The patient did not perform the activity before the current illness or injury 88 Not attempted due to Medical conditions or safety concerns Grooming (FIM): 5 (SBA, FWW at sink) Oral Hygiene (QC): 4 (SBA) Education OT Patient Education: Exercise program, Modified ADL techniques, Progress toward Goal/Update tx plan, Purpose of tx/functional activities, Transfer techniques Teaching Recipient: Patient Teaching Methods: Demonstration, Discussion Response to Teaching: Verbalize Understanding, Return Demonstration, Reinforcement Needed OT Short Term Goals Short Term Goals Time Frame: Sep 12, 2017 Transfers (B,C,W/C) (FIM): 6 Toilet/Commode Transfer(FIM): 5 Additional Short Term Goals: 1-Demonstrate ADL Tasks, 2-Verbalize Understanding , 3-ImproveStrength/Félix 1=Demonstrate adherence to instructed precautions during ADL tasks. 2=Patient will verbalize/demonstrate understanding of assistive devices/ modifications for ADL. 3=Patient will improve strength/tolerance for activity to enable patient to perform ADL's. OT Membership Sales Manager Goals Correction Goals Time Frame: Sep 19, 2017 Eating (FIM): 7 Eating (QC): 6 Groomin Oral Hygiene (QC): 6 Bathing(FIM): 6 Shower/Bathe Self (QC): 6 Upper Body Dressing(FIM): 6 Upper Body Dressing (QC): 6 Lower Body Dressing(FIM): 6 Lower Body Dressing (QC): 6 On/Off Footwear (QC): 6 Toileting(FIM): 6 Toileting Hygiene (QC): 6 Toilet/Commode Transfer(FIM): 6 Toilet/Commode Transfer (QC): 6 Shower Transfer(FIM): 6 Additional Goals: 1-Demonstrate ADL Tasks, 2-Verbalize Understanding, 3- ImproveStrength/Félix 1=Demonstrate adherence to instructed precautions during ADL tasks. 2=Patient will verbalize/demonstrate understanding of assistive devices/ modifications for ADL. 3=Patient will improve strength/tolerance for activity to enable patient to perform ADL's. OT Education/Plan Problem List/Assessment Pt would benefit from skilled OT to increase her independence in basic self care to allow her to safely return home Discharge Recommendations Plan/Recommendations: Continue POC Treatment Plan/Plan of Care Patient would benefit from OT for education, treatment and training to promote independence in ADL's, mobility, safety and/or upper extremity function for ADL' s. Plan of Care: ADL Retraining, Functional Mobility, Group Exercise/Act as Ind ( education, exercise, functional activities, socialization), UE Funct Exercise/ Act, UE Neuromus Re-Ed/Coord Treatment Duration: Sep 19, 2017 Frequency: At least 5 of 7 days/Wk (IRF) Estimated Hrs Per Day: 1.5 hours per day Agreement: Yes Rehab Potential: Good Time/GCodes Start Time: 13:25 Stop Time: 13:55 Total Time Billed (hr/min): 30 Billed Treatment Time visit, 15 minutes ADL, 15 minutes exercise EUNICE DONNELLY OT September 06, 2017 15:08
[2017-09-06] MEDS: MULTIVIT W/MINERALS TAB (THERAGRAN M) PO SCH (16:00)
[2017-09-06 17:13] VITALS: BP 119/62
[2017-09-06] MEDS ORDERED: [UNRECOGNIZED DRUG - OTHER] PO SCH (18:00)
--- NOTE | 2017-09-06 21:25 | PM&R Post Admission Assessment ---
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 The patient will have a comprehensive program of inpatient rehabilitation with a goal of maximizing level of functional independence prior to discharge home with [facility]. The patient will have PT/OT ninety minutes per day, each discipline , five days a week for 10 days for gait, strengthening, conditioning, balance, ADLs, any patient/family/caregiver training as necessary. Speech therapy to do cognitive assessment and treat as indicated. Rehabilitation nursing to assist with bowel, bladder, skin, medication administration, pain management. Sealer Operator to assist with discharge planning, community reentry. SCD's for DVT prophylaxis. She appears to be well motivated to participate in three hours of therapy a day. She should be able to tolerate three hours of therapy a day from a medical and surgical standpoint. She should benefit from the three hours of therapy a day. She has a reasonable discharge plan, reasonable discharge rehabilitation goals and a supportive brother who lives in [facility].She had been Independent prior to her RT THR and living alone in a detention community in [place]. She has various comorbidities that need to be closely monitored with medications and treatments adjusted on a daily basis as needed. These include: OA Anemia Raynauds syndrome GERD Osteoporosis Hyponatremia [facility] code 08.8 Etiologic DX Possible stress fracture S/P RT THR Bone scan ordered Patients Ortho told patient to use a walker for a month to see if improvement in Pain with WT Bearing(as per patients report) Orthopedist in [place] Barriers to discharge for this patient who had been independent prior to this are for her to be modified independent to supervision for ADLs and mobility skills prior to discharge home with [facility], so as to lessen the burden of the caregivers. Risks for this patient include: 1. Fall 2. Fracture 3. DVT 4. Pulmonary embolism 5. Wound infection 6. Skin breakdown 7. Contractures 8. Poorly controlled pain 9. Urinary retention 10. UTI 11. Respiratory infection 12. Aspiration Estimated Length of Stay: 10 days Prognosis: Rehab prognosis appears good for goal of discharge home with [facility] modified independent to supervision for ADLs and mobility skills. General: Alert, Oriented X3, Cooperative, No Acute Distress, Other (The patient is seen in her room this evening.Appreciate Therapy and DR Llanes notes) HEENT: Atraumatic, PERRLA, EOMI, Mucous Memb Moist/[place] Neck: Supple, No JVD Lungs: Clear to Auscultation Heart: Regular Rate Abdomen: Normal Bowel Sounds, No Tenderness Extremities: No Edema Neuro: Other (Mild weakness at Rt hip with some guarding) Psych/Mental Status: Mental Status NL, Mood NL, Other (Patient is SBA for transfers) TERRI BOSS MD September 06, 2017 21:25
[2017-09-07 06:27] VITALS: BP 127/67
--- NOTE | 2017-09-07 07:58 | Progress Note (SOAP) ---
Subjective Time Seen by Provider: 07:55 Subjective/Events-last exam Orthopedic pain in leg and hip. Patient states she's feeling better. Patient had a bone scan today. Patient voices no complaints Objective Exam Vital Signs Date Time Temp Pulse Resp B/P (MAP) Pulse Ox O2 Delivery O2 Flow Rate FiO2 09/07/17 06:27 98.2 66 17 127/67 (87) 97 Room Air 09/06/17 21:00 Room Air 09/06/17 20:44 94 Room Air 09/06/17 17:13 96.5 73 16 119/62 (81) 97 Room Air 09/06/17 14:07 97 Room Air 09/06/17 09:00 Room Air I & O 09/07/17 07:00 Intake Total 1700 ml Balance 1700 ml Capillary Refill : General Appearance: No Apparent Distress, Thin Assessment/Plan Assessment/Plan Assess & Plan/Chief Complaint Right hip problem. To be evaluated by orthopedic. . 09/07/17. Right hip problem. To have bone scan today. Waiting for results Clinical Quality Measures Admission Status Admission Dx Orthopedic problem. Pain in the right hip. Bronchitis last week. Sinusitis. Loose exam with femur DVT/VTE Risk/Contraindication: Risk Factor Score Per Nursin RFS Level Per Nursing on Admit: 2=Moderate MAG LI DO Sep 07, 2017 07:58
[2017-09-07] MEDS ORDERED: CATHETER FLUSH 10 ML SYR IV PRN (08:15)
--- NOTE | 2017-09-07 08:30 | PM & R (SOAP) Progress Note ---
Subjective This was a face to face visit with the patient. Date Seen by Provider: Sep 07, 2017 Time Seen by Provider: 08:15 Subjective/Events-last exam Patient was seen in her room this AM Discussed case with DR Hartmann Bone scan to be done today Patient sba for transfers,Patient worried about returning home alone to intermediate apartment in [place] Has Brother in [place] Review of Systems Musculoskeletal: leg pain Objective Physician Exam Last Set of Vital Signs Vital Signs Date Time Temp Pulse Resp B/P (MAP) Pulse Ox O2 Delivery O2 Flow Rate FiO2 09/07/17 06:27 98.2 66 17 127/67 (87) 97 Room Air Capillary Refill : I&O Intake and Output 09/07/17 00:00 Intake Total 1500 ml Balance 1500 ml Intake Oral 1500 ml # Voids 8 General: Alert, Oriented X3, Cooperative, No Acute Distress, Other (The patient is seen in her room this evening.Appreciate Therapy and DR Llanes notes) HEENT: Atraumatic, PERRLA, EOMI, Mucous Memb Moist/[place] Neck: Supple, No JVD Lungs: Clear to Auscultation Heart: Regular Rate Abdomen: Normal Bowel Sounds, No Tenderness Extremities: No Edema Neuro: Other (Mild weakness at Rt hip with some guarding) Psych/Mental Status: Mental Status NL, Mood NL, Other (Patient is SBA for transfers) Results Lab Data Laboratory Tests 09/05/17 15:06: White Blood Count 5.6, Red Blood Count 4.28L, Hemoglobin 13.0, Hematocrit 39, Mean Corpuscular Volume 90, Mean Corpuscular Hemoglobin 30, Mean Corpuscular Hemoglobin Concent 34, Red Cell Distribution Width 14.1, Platelet Count 235, Mean Platelet Volume 11.2H, Sodium Level 135, Potassium Level 4.0, Chloride Level 101, Carbon Dioxide Level 24, Anion Gap 10, Blood Urea Nitrogen 26H, Creatinine 0.87, Estimat Glomerular Filtration Rate > 60, BUN/Creatinine Ratio 30, Glucose Level 101, Calcium Level 9.8, Total Bilirubin 0.4, Aspartate Amino Transf (AST/SGOT) 27, Alanine Aminotransferase (ALT/SGPT) 27, Alkaline Phosphatase 81, Total Protein 7.5, Albumin 4.0 Assessment/Plan Assessment and Plan Postop Rt hip pain with wt bearing Bone scan to be done today to check for stress fracture or loosening of prosthesis. F/U re results and contact her Orthopedist as needed in [place] Recent bout of Bronchitis OA. 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
--- NOTE | 2017-09-07 08:39 | Individualized Plan of Care ---
Individualized Plan of Care Rehab Nursing IPOC Order Admission Date September 05, 2017 at 12:00 Current Orders Orders Admission Order(Inpt,Obs,Sdc) (09/05/17 11:55) Pt Evaluate/Treat Request (09/05/17 11:55) Request Ot Evaluate & Treat (09/05/17 11:55) Request For Cognitive Services (09/05/17 11:55) Weight Bearing Status (09/05/17 11:55) General/Regular (09/05/17 Lunch) Admission Arrival Bed Request (09/05/17 11:58) Chest Pa/Lat (2 View) (09/05/17 14:38) Pelvis With Right Hip 2-3views (09/05/17 14:38) Cbc No Diff (09/05/17 14:38) Comprehensive Metabolic Panel (09/05/17 14:38) Patient Visit (09/05/17 ) Speech Sound Lang Comp (09/05/17 ) Patient Visit (09/05/17 ) Pt Eval Moderate Complexity (09/05/17 ) Patient Visit (09/05/17 ) Therapeutic, Group (09/05/17 ) Patient Visit (09/05/17 ) Gait Training, Ea 15 Min (09/05/17 ) Albuterol Pre-Mix Nebs (Rt) (Proventil (09/05/17 19:08) Albuterol Pre-Mix Nebs (Rt) (Proventil (09/05/17 22:00) Svn Small Volume Nebulizer (09/05/17 19:18) Rt Request For Service (09/05/17 19:25) Albuterol Pre-Mix Nebs (Rt) (Proventil (09/05/17 21:00) Ekg Tracing (09/05/17 20:28) Ambulate TID (09/05/17 20:56) Sequential Compression Device 08,20 (09/05/17 20:56) Dvt/Vte Risk - Notifiy Physici 08 (09/05/17 20:56) Pharmacy Consult/Message (09/05/17 22:38) Nursing Communication (Order) (09/06/17 09:46) Bone Scan 3 Phase (09/07/17 09:46) Ascorbic Acid Tablet (Vitamin C Tablet) (09/06/17 11:45) (Nf) Calcium Carbonate/Mag Carb (Magnebi (09/06/17 12:00) (Nf) Calcium Carbonate/Mag Carb (Magnebi (09/06/17 18:00) Cholecalciferol Capsule/Tablet (Vitamin (09/06/17 12:00) Cholecalciferol Capsule/Tablet (Vitamin (09/06/17 18:00) Therapeutic Multivitamin Tab (Vitamins, (09/06/17 14:58) Obtain Records From (Order) (09/06/17 14:48) Patient Visit (09/06/17 ) Gait Training, Ea 15 Min (09/06/17 ) Exercise Therap, Ea 15 Min (09/06/17 ) Patient Visit (09/06/17 ) Gait Training, Ea 15 Min (09/06/17 ) Ex Neuromuscular, Ea 15 Min (09/06/17 ) Sodium Chloride Flush (Catheter Flush Sy (09/07/17 08:15) Rehab Nursing Orders: Disease Management & Educaiton, DVT Prophylaxis, Nutrition Management, Pain Management, Patient/Family Support Other Nursing Orders: Monitor for constipation and urinary retention PT IPOC Problem List: Activity Tolerance, Functional Strength, Safety Treatment Plan: Continue Plan of Care Bed Mobility, Education, Functional Activity Félix, Functional Strength, Group Therapy, Gait, Safety, Therapeutic Exercise, Transfers Treatment Duration: Sep 20, 2017 Frequency: At least 5 of 7 days/Wk (IRF) Estimated Hrs Per Day: 1.5 hours per day OT IPOC Problems: Decreased Activ Tolerance, Decreased UE Strength, Dependent Transfers , Impaired Funct Balance, Impaired Self-Care Skills OT Treatment, Training and Edu: Yes OT Problems Pt would benefit from skilled OT to increase her independence in basic self care to allow her to safely return home Plan of Care: ADL Retraining, Functional Mobility, Group Exercise/Act as Ind ( education, exercise, functional activities, socialization), UE Funct Exercise/ Act, UE Neuromus Re-Ed/Coord Treatment Duration: Sep 19, 2017 Frequency: At least 5 of 7 days/Wk (IRF) Estimated Hrs Per Day: 1.[address] IPOC Speech Therapy Treatment Plan: Discontinue ST Treatment Duration: Sep 07, 2017 Frequency: Modified Program (IRF) (No ST warranted.) Estimated Hrs Per Day: Other (No ST warranted.) Sewing Trimmer/Case Mgmt Sewing Trimmer/Case Managemen: Discharge Planning, Patient/Family Counseling Dietitian/Chief Scientist Dietitian/Chief Scientist to monitor nutritional status and make changes and/or recommendations as needed and work with speech pathology on dietary upgrades as the occur. Physician IPOC Medical Issues being managed closely and that require the 24 hour availability of a physician: Postop pain OA Recent bronchitis Medical Issues: Bowel/Bladder Function, DVT Prophylaxis, Falls Precautions, Infection Protection, Pain Management, Weight Bearing Precautions, Other (List) (as per above) Brief Synthesis of Preadmission Screen, Post-Admission Evaluation, and Therapy Evaluations:81 yo female who has had a RT THR for painful djd who has had persistent pain with WT bearing Her Orthopedist in [place] suggested using a walker for pain relief for a month to see if resloves Came to [place] to be near her brother a retired Physician as she she lives alone in a skilled nursing community in [place].To have a bone scan today to check for loosening of prosthesis or a stress fracture.Had been Independent prior to this.Recovering from a recent bout of bronchitis and endurance limited . [facility] code 08.8 Etilogic DX Post op RT Hip pain r/o stress fracture Medical Prognosis: Good Anticipated Length of Stay: 08-14-17 Modified Independent for adls and mobility skills with decreased pain Anticipated d/c Destination: Home with [facility] TERRI BOSS MD Sep 07, 2017 8:39 am
[2017-09-07] MEDS: VITAMIN D3 400 UNITS (CHOLECALCIFEROL) TABLET PO SCH ×3 (08:46→17:37)
[2017-09-07] MEDS: ASCORBIC ACID (VIT C) 500 MG TABLET PO SCH ×2 (08:46→21:30)
[2017-09-07] MEDS: RT-ALBUTEROL SULF 2.5 MG/3 ML PRE-MIX VIAL INH SCH ×3 (10:24→18:52)
--- NOTE | 2017-09-07 10:26 | Physical Therapy Daily Note ---
PT Daily Note-Current Subjective Agreeable to PT. Pt reports her core muscles are a bit sore from the hopping. Transfers Functional [place] Measure 0=Not Assessed/NA 4=Minimal Assistance 1=Total Assistance 5=Supervision or Setup 2=Maximal Assistance 6=Modified [place] 3=Moderate Assistance 7=Complete IndependenceIRFPAI Quality Coding Scale 6 Independent with activity with or without an assistive device 5 Patient requires set up or clean up by helper. Patient completes activity by themselves 4 Supervision or touching assist (CGA). [place] provide cues , steadying assist 3 The helper provides less than half the effort to complete the activity 2 The helper provides more than half the effort to complete the activity 1 Dependent. The helper does all the effort to complete an activity 7 Patient refused to complete or attempt activity 9 The patient did not perform the activity before the current illness or injury 88 Not attempted due to Medical conditions or safety concerns Transfers (B, C, W/C) (FIM): 5 Roll Left to Right (QC): 7 Supine to/from Sit: 7 Sit to/from Stand: 5 Sit to stand multiple times throughout treatment. Weight Bearing Right Lower Extremity: Right Touch Toe Bearing Left Lower Extremity: Left Full Weight Bearing Per physician office in [place] (Dr. Kim) "limit WB on the right LE" Gait Training Does the Patient Walk?: Yes Gait (FIM): 2 Distance (FIM): 1=up to 49 ft Distance: 40 ft x 6 reps Gait Assistive Device: FWW Pt ambulates NWB right with FWW with SBA; safe and steady without LOB; she does fatigue. Exercises Supine Ex: Ankle pumps (15), Pelvic tilt (15), Quad Set, Glut sets (15), Heel Slides (5), Short Arc Quads (5), Straight leg raise (5), Hip abd/add (15) LE ther ex to increase functional strength for safe transfers, gait and functional activity tolerance. NuStep Minutes: 12 (R LE off to the side on a curb step; used to increase left LE strength and activity tolerance.) NuStep Workload: 1 Assessment Current Status: Good Progress Pt is making good gains and her safety is improved. She is primarily at a SBA level with gait at this time. Distance is limited due to fatigue with hopping. It is not completely clear on her WB status at this time. Initially the order was TTWB, upon phone conversation with Dr. Esquivel nurse she reported "try not to put much weight on it."; therefore exact WB is unclear. Hopping is difficult and taxing for this patient. In addition, she will have difficulties at home with a limited WB status. She is currently undergoing tests and perhaps her WB status will change. However, at this time, I feel it is prudent to limit WB to allow bone healing to protect the existing hardware in her hip and maintain a conservative approach until further cleared by physician. PT Short Term Goals Short Term Goals Time Frame: Sep 12, 2017 Transfers (B,C,W/C) (FIM): 6 Gait (FIM): 4 Gait Assistive Device: FWW PT Assisted Goals [place] Machine Tender Goals PT Assisted Goals Time Frame: Sep 20, 2017 Transfers (B,C,W/C) (FIM): 7 Sit to Lying (QC): 6 Lying-Sitting on Side/Bed(QC): 6 Sit to Stand (QC): 6 Roll Left to Right (QC): 6 Chair/Pqi-gj-Alnvk Xfer(QC): 6 Car Transfer (QC): 6 Does the Patient Walk: Yes Gait (FIM): 5 (household exception) Gait distance (FIM): 7=307-55 ft Distance: 50 ft Walk 10 feet (QC): 6 Walk 10ft-Uneven Surface(QC): 6 Walk 50ft with 2 Turns (QC): 6 Walk 150 ft (QC): 9 (too far for her to hop) Gait Assistive Device: FWW Does the Pt use WC or Scooter?: No Stairs (FIM): 5 (household exception) # of Steps: 4 1 Step (curb) (QC): 6 4 Steps (QC): 6 12 Steps (QC): 88 Picking up an Object (QC): 4 PT Plan Problem List Problem List: Activity Tolerance, Functional Strength, Safety, Balance, Gait, Transfer, Bed Mobility Treatment/Plan Treatment Plan: Continue Plan of Care Treatment Plan: Bed Mobility, Education, Functional Activity Félix, Functional Strength, Group Therapy, Gait, Safety, Therapeutic Exercise, Transfers Treatment Duration: Sep 20, 2017 Frequency: At least 5 of 7 days/Wk (IRF) Estimated Hrs Per Day: 1.5 hours per day Patient and/or Family Agrees t: Yes Safety Risks/Education Patient Education: Reviewed Precautions Teaching Recipient: Patient Teaching Methods: Discussion Response to Teaching: Verbalize Understanding Time/GCodes Time In: 915 Time Out: 1015 Total Billed Treatment Time: 60 Total Billed Treatment visit EX 30 GT 30 RACHEL DAVIS PT Sep 07, 2017 10:26
[2017-09-07] MEDS: MULTIVIT W/MINERALS TAB (THERAGRAN M) PO SCH (11:23)
--- NOTE | 2017-09-07 12:16 | Physical Therapy Daily Note ---
PT Daily Note-Current Subjective Agreeable to PT. Transfers Functional [place] Measure 0=Not Assessed/NA 4=Minimal Assistance 1=Total Assistance 5=Supervision or Setup 2=Maximal Assistance 6=Modified [place] 3=Moderate Assistance 7=Complete IndependenceIRFPAI Quality Coding Scale 6 Independent with activity with or without an assistive device 5 Patient requires set up or clean up by helper. Patient completes activity by themselves 4 Supervision or touching assist (CGA). [place] provide cues , steadying assist 3 The helper provides less than half the effort to complete the activity 2 The helper provides more than half the effort to complete the activity 1 Dependent. The helper does all the effort to complete an activity 7 Patient refused to complete or attempt activity 9 The patient did not perform the activity before the current illness or injury 88 Not attempted due to Medical conditions or safety concerns Weight Bearing Right Lower Extremity: Right Touch Toe Bearing Left Lower Extremity: Left Full Weight Bearing Per physician office in [place] (Dr. Kim) "limit WB on the right LE" Treatments Pt is indep with bed mobility and SBA with sit to stand. Pt ambulated to from bathroom with FWW, TTWB right with SBA. Toileted with SBA. Stood at sink with SBA. Pt then sat EOB to change undergarments. Focused on seated and standing static and dynamic balance to change undergarments, hose and pants. Pt was able to complete all th SBA. Pt up in wheelchair post treatment ready for DI to take her for more testing. Assessment Current Status: Good Progress Safe and steady with all mobility today. Did will with transfers and multiple sit to stand reps. PT Short Term Goals Short Term Goals Time Frame: Sep 12, 2017 Transfers (B,C,W/C) (FIM): 6 Gait (FIM): 4 Gait Assistive Device: FWW PT Floor Supervisor Goals Nursing Home Goals PT Nursing Home Goals Time Frame: Sep 20, 2017 Transfers (B,C,W/C) (FIM): 7 Sit to Lying (QC): 6 Lying-Sitting on Side/Bed(QC): 6 Sit to Stand (QC): 6 Roll Left to Right (QC): 6 Chair/Luq-hp-Hsdkf Xfer(QC): 6 Car Transfer (QC): 6 Does the Patient Walk: Yes Gait (FIM): 5 (household exception) Gait distance (FIM): 5=344-39 ft Distance: 50 ft Walk 10 feet (QC): 6 Walk 10ft-Uneven Surface(QC): 6 Walk 50ft with 2 Turns (QC): 6 Walk 150 ft (QC): 9 (too far for her to hop) Gait Assistive Device: FWW Does the Pt use WC or Scooter?: No Stairs (FIM): 5 (household exception) # of Steps: 4 1 Step (curb) (QC): 6 4 Steps (QC): 6 12 Steps (QC): 88 Picking up an Object (QC): 4 PT Plan Problem List Problem List: Activity Tolerance, Functional Strength, Safety Treatment/Plan Treatment Plan: Continue Plan of Care Treatment Plan: Bed Mobility, Education, Functional Activity Félix, Functional Strength, Group Therapy, Gait, Safety, Therapeutic Exercise, Transfers Treatment Duration: Sep 20, 2017 Frequency: At least 5 of 7 days/Wk (IRF) Estimated Hrs Per Day: 1.5 hours per day Patient and/or Family Agrees t: Yes Time/GCodes Time In: 1140 Time Out: 1208 Total Billed Treatment Time: 28 Total Billed Treatment visit FA 28 RACHEL DAVIS PT Sep 07, 2017 12:16
--- NOTE | 2017-09-07 12:54 | Occupational Ther Daily Note ---
OT Current Status-Daily Note Subjective Pt seen in room, up in chair at sink, starting to groom. No pain mentioned. Appearance Alert, cooperative Mental Status/Objective Functional [place] Measure 0=Not Assessed/NA 4=Minimal Assistance 1=Total Assistance 5=Supervision or Setup 2=Maximal Assistance 6=Modified [place] 3=Moderate Assistance 7=Complete [place] ADL-Treatment Pt was in chair at sink, beginning grooming tasks. Cues to maintain WB status static and dynamic while standing at sink. Pt groomed and dress, then walked with SBA, FWW to toilet. After washing her hands, she walked with SBA, FWW to w/ c for radiology procedure, maintaining WBS. Functional [place] Measure 0=Not Assessed/NA 4=Minimal Assistance 1=Total Assistance 5=Supervision or Setup 2=Maximal Assistance 6=Modified [place] 3=Moderate Assistance 7=Complete IndependenceIRFPAI Quality Coding Scale 6 Independent with activity with or without an assistive device 5 Patient requires set up or clean up by helper. Patient completes activity by themselves 4 Supervision or touching assist (CGA). [place] provide cues , steadying assist 3 The helper provides less than half the effort to complete the activity 2 The helper provides more than half the effort to complete the activity 1 Dependent. The helper does all the effort to complete an activity 7 Patient refused to complete or attempt activity 9 The patient did not perform the activity before the current illness or injury 88 Not attempted due to Medical conditions or safety concerns Grooming (FIM): 5 (Skilled cues to remind pt not to put weight on R LE while standing at sink and when reaching for items to her R side. ) Upper Body (FIM): 5 (Pt doffed and donned clothing with setup) Lower Body Dressing (FIM): 5 (Pt used sock aid to don support hose and used dressing stick for putting pants on, with occasional cues for their use. Able to stand to pull pants up and maintain weight bearing status.) Toileting (FIM): 5 (SBA getting up and down from BSC over toilet, with grab bar. Manages clothing and hygiene. CUes to not pull self up with FWW, for safety ) Toilet/Commode Transfer (FIM): 5 (SBA getting on and off BSc over toilet, with cues to not pull self up with FWW. ) Education OT Patient Education: Modified ADL techniques, Purpose of tx/functional activities, Safety issues, Transfer techniques Teaching Recipient: Patient Teaching Methods: Discussion Response to Teaching: Verbalize Understanding, Return Demonstration, Reinforcement Needed OT Short Term Goals Short Term Goals Time Frame: Sep 12, 2017 Transfers (B,C,W/C) (FIM): 6 Toilet/Commode Transfer(FIM): 5 Additional Short Term Goals: 1-Demonstrate ADL Tasks, 2-Verbalize Understanding , 3-ImproveStrength/Félix 1=Demonstrate adherence to instructed precautions during ADL tasks. 2=Patient will verbalize/demonstrate understanding of assistive devices/ modifications for ADL. 3=Patient will improve strength/tolerance for activity to enable patient to perform ADL's. OT Retirement Goals Phlebotomy Instructor Goals Time Frame: Sep 19, 2017 Eating (FIM): 7 Eating (QC): 6 Groomin Oral Hygiene (QC): 6 Bathing(FIM): 6 Shower/Bathe Self (QC): 6 Upper Body Dressing(FIM): 6 Upper Body Dressing (QC): 6 Lower Body Dressing(FIM): 6 Lower Body Dressing (QC): 6 On/Off Footwear (QC): 6 Toileting(FIM): 6 Toileting Hygiene (QC): 6 Toilet/Commode Transfer(FIM): 6 Toilet/Commode Transfer (QC): 6 Shower Transfer(FIM): 6 Additional Goals: 1-Demonstrate ADL Tasks, 2-Verbalize Understanding, 3- ImproveStrength/Félix 1=Demonstrate adherence to instructed precautions during ADL tasks. 2=Patient will verbalize/demonstrate understanding of assistive devices/ modifications for ADL. 3=Patient will improve strength/tolerance for activity to enable patient to perform ADL's. OT Education/Plan Problem List/Assessment Pt would benefit from skilled OT to increase her independence in basic self care to allow her to safely return home Discharge Recommendations Plan/Recommendations: Continue POC Treatment Plan/Plan of Care Patient would benefit from OT for education, treatment and training to promote independence in ADL's, mobility, safety and/or upper extremity function for ADL' s. Plan of Care: ADL Retraining, Functional Mobility, Group Exercise/Act as Ind ( education, exercise, functional activities, socialization), UE Funct Exercise/ Act, UE Neuromus Re-Ed/Coord Treatment Duration: Sep 19, 2017 Frequency: At least 5 of 7 days/Wk (IRF) Estimated Hrs Per Day: 1.5 hours per day Agreement: Yes Rehab Potential: Good Time/GCodes Start Time: 08:15 Stop Time: 08:55 Total Time Billed (hr/min): 40 Billed Treatment Time visit, 40 minutes EUNICE GONZALEZ OT Sep 07, 2017 12:54
--- NOTE | 2017-09-07 13:33 | Diagnostic Imaging Report ---
INDICATION: Right total hip replacement in 2012. Patient is experiencing acute pain of the right hip. TECHNIQUE: The patient was administered 26.4 mCi of technetium-99m MDP intravenously, and dynamic flow, blood pool, and delayed imaging over the pelvis and hips was performed. FINDINGS: There is symmetric perfusion bilaterally. Blood pool image does show photopenia over the right hip consistent with patient's known right hip prosthesis. Delayed imaging is unremarkable. No abnormal increased tracer accumulation is seen. There are no findings to suggest loosening of the prosthesis. No findings to suggest osteomyelitis are seen. There is some minimal uptake noted on the delayed images at the tip of the prosthesis, an expected finding. There does appear to be some vertically oriented increased activity over the right sacral ala. This is noted to a lesser degree over the left sacral ala. The possibility of an insufficiency fracture cannot be entirely excluded. No other abnormal foci are detected. IMPRESSION: 1. No findings to suggest osteomyelitis. There are postop changes of right total hip replacement. No findings to suggest hardware loosening are seen. 2. Increased activity over the sacral ala bilaterally, greatest on the right. This can be seen with insufficiency fractures. MRI through the sacrum would be useful for further evaluation, if clinically indicated. Dictated by: Dictated on workstation # [id number]
--- NOTE | 2017-09-07 14:53 | Therapy Group Daily Note ---
Therapy Daily Group Note Exercises Fine Motor, UE Exercise Other/Notes Pt. participated in group PT OT session this date. Pt. came and went via w/c . Pts. all introduced selves to one another at the table of 4 where they were seated for either HALLIE, dominoes or a card game. Pts. all introduced selves and shared at their individual tables then played group Bingo followed by individual table games. All games and activities at each table facilitated sequencing, problem solving, social interaction , reaching, UE strength and pincer grasp. Pt. TRFd to bed SBA to CGA. Call vázquez at hand. Start Time: 13:00 Stop Time: 14:15 Total Billed Treatment Time: 75 Total Billed Treatment 1,GRP AMBER BEY FLIGHT STEWARD Sep 07, 2017 14:53
[2017-09-07 18:31] VITALS: BP 123/77
[2017-09-08 06:00] VITALS: BP 109/58
[2017-09-08] MEDS: RT-ALBUTEROL SULF 2.5 MG/3 ML PRE-MIX VIAL INH SCH ×3 (06:56→19:43)
[2017-09-08] MEDS: ASCORBIC ACID (VIT C) 500 MG TABLET PO SCH ×2 (08:32→19:20)
[2017-09-08] MEDS: VITAMIN D3 400 UNITS (CHOLECALCIFEROL) TABLET PO SCH ×3 (08:32→17:08)
--- NOTE | 2017-09-08 09:42 | Consultation-Cardiology ---
HPI-Cardiology Cardiology Consultation Date of Consultation 09/08/17 Date of Admission Time Seen by Provider: 09:38 Indication: chest pain HPI 81 years old lady with history of hypertension, palpitation, reporting history of chest pain occurred in May and June where she felt slight discomfort in her chest without exertion and resolve spontaneously. She has seen by quality assurance calibrator in [facility], felt that chest pain is noncardiac, had a stress test and echo done in March 2015 which was normal. Patient is currently feeling better, complaining of generalized weakness and pain in her leg. Unable to bear weight on her leg. I was called for evaluation of her chest pain and hypertension Home Medications & Allergies Allergies: Coded Allergies: acetaminophen (Verified Allergy, Unknown, 09/05/17) "Dizziness" hydrocodone (Verified Allergy, Unknown, 09/05/17) "Dizziness" propoxyphene (Verified Allergy, Unknown, 09/05/17) 'dizzy' amoxicillin (Unverified Adverse Reaction, Unknown, 09/05/17) "DIARRHEA" aspirin (Unverified Adverse Reaction, Unknown, 09/05/17) "nausea" cephalexin (Unverified Adverse Reaction, Unknown, 09/05/17) itching, cramps, diarrhea chlorpheniramine (Unverified Adverse Reaction, Unknown, 09/05/17) erythromycin base (Unverified Adverse Reaction, Unknown, 09/05/17) sudden weakness morphine (Unverified Adverse Reaction, Unknown, 09/05/17) "passed out" pentazocine (Verified Adverse Reaction, Unknown, 09/05/17) dizzy sulfamethoxazole (Unverified Adverse Reaction, Unknown, 09/05/17) 'Thrush' trimethoprim (Unverified Adverse Reaction, Unknown, 09/05/17) 'Thrush' Uncoded Allergies: Bisulfites (Adverse Reaction, Unknown, 09/05/17) weakness EDRISAL (Adverse Reaction, Unknown, 09/05/17) 'DIZZY' Phenaphen (Adverse Reaction, Unknown, 09/05/17) dizzy Home Medication List Reviewed: Yes XBR-[place]-Ousmde Hx Patient Social History Marital Status: single Employed/Student: retired Alcohol Use: Denies Use Recreational Drug Use: No Smoking Status: Former Smoker Type Used: Cigarettes Recent Foreign Travel: No Recent Infectious Disease Expo: No Recent Hopitalizations: No (May 2017 Sciaticia of Rt hip, [facility], [place], [place]) Physical Abuse Screen: No Sexual Abuse: No Past Medical History Past medical history is discussed below Family Medical History Family Medical Hx Noncontributory to her current condition Constitutional: no symptoms reported, see HPI EENTM: see HPI, no symptoms reported Respiratory: no symptoms reported, see HPI Cardiovascular: see HPI, chest pain; No edema, No Hx of Intervention, No palpitations, No syncope, No vascular heart diseas, No other Gastrointestinal: no symptoms reported, see HPI Genitourinary: no symptoms reported, see HPI Musculoskeletal: see HPI, joint pain, muscle stiffness Skin: no symptoms reported, see HPI Psychiatric/Neurological: No Symptoms Reported, See HPI Reviewed Test Results Reviewed Test Results Lab Labs from September 05, 2017 reviewed Physical Exam Vital Signs Vital Signs - First Documented 09/05/17 13:46 Temp 97.5 Pulse 71 Resp 16 B/P (MAP) 163/93 (116) Pulse Ox 97 O2 Delivery Room Air Capillary Refill : General Appearance: No Apparent Distress, WD/WN Eyes: Bilateral Eye Normal Inspection, Bilateral Eye PERRL, Bilateral Eye EOMI HEENT: PERRL/EOMI, TMs Normal, Normal ENT Inspection, Pharynx Normal Neck: Full Range of Motion, Normal Inspection, Non Tender, Supple, Carotid Bruit Respiratory: Chest Non Tender, Lungs Clear, Normal Breath Sounds, No Accessory Muscle Use, No Respiratory Distress Cardiovascular: Regular Rate, Rhythm, No Edema, No Gallop, No JVD, No Murmur, Normal Peripheral Pulses Gastrointestinal: Normal Bowel Sounds, No Organomegaly, No Pulsatile Mass, Non Tender, Soft Back: Normal Inspection, No CVA Tenderness, No Vertebral Tenderness Extremity: Normal Capillary Refill, Normal Inspection, Non Tender, No Calf Tenderness, No Pedal Edema, Other (pain in her leg) Neurologic/Psychiatric: Alert, Oriented x3, No Motor/Sensory Deficits, Normal Mood/Affect Skin: Normal Color, Warm/Dry Lymphatic: No Adenopathy A/P-Cardiology Admission Diagnosis Chest pain, nonspecific etiology Palpitation Hypertension Hyperlipidemia Assessment/Plan Atypical chest pain, unlikely to be cardiac in nature, stress test was done in March 2015 with no significant ischemic abnormality. I will continue monitoring at this time, no changes are recommended. History of palpitation, reporting improvement, no further episodes were reported History of hypertension, currently off her blood pressure medication and her blood pressure is well controlled. Continue to monitor Questionable hyperlipidemia, has been on Crestor previously. I will evaluate lipid profile and monitor. Multiple orthopedic problems generalized pain, lower extremity pain, receiving physical therapy Clinical Quality Measures DVT/VTE Risk/Contraindication: Risk Factor Score Per Nursin RFS Level Per Nursing on Admit: 2=Moderate PRATIMA AU MD Sep 08, 2017 09:42
[2017-09-08] MEDS: MULTIVIT W/MINERALS TAB (THERAGRAN M) PO SCH (11:22)
--- NOTE | 2017-09-08 12:04 | Physical Therapy Daily Note ---
PT Daily Note-Current Subjective Agreeable to Rx, comments that she forgets to maintain TDWB on right Pain Numeric Pain Scale: 0-No Pain Mental Status Patient Orientation: Normal For Age Transfers Functional [place] Measure 0=Not Assessed/NA 4=Minimal Assistance 1=Total Assistance 5=Supervision or Setup 2=Maximal Assistance 6=Modified [place] 3=Moderate Assistance 7=Complete IndependenceIRFPAI Quality Coding Scale 6 Independent with activity with or without an assistive device 5 Patient requires set up or clean up by helper. Patient completes activity by themselves 4 Supervision or touching assist (CGA). [place] provide cues , steadying assist 3 The helper provides less than half the effort to complete the activity 2 The helper provides more than half the effort to complete the activity 1 Dependent. The helper does all the effort to complete an activity 7 Patient refused to complete or attempt activity 9 The patient did not perform the activity before the current illness or injury 88 Not attempted due to Medical conditions or safety concerns Transfers (B, C, W/C) (FIM): 6 Scootin Rollin Supine to/from Sit: 6 Sit to/from Stand: 6 Weight Bearing Right Lower Extremity: Right Touch Toe Bearing Left Lower Extremity: Left Full Weight Bearing Per physician office in [place] (Dr. Kim) "limit WB on the right LE" Gait Training Does the Patient Walk?: Yes Gait (FIM): 2 Distance (FIM): 2=220-41 ft (100,120) Gait Level of Assist: 5 Gait Persons Needed: 1 Gait Assistive Device: FWW no LOB, maintained wt bear status well Exercises Supine Ex: Ankle pumps, Quad Set, Rolling, Heel Slides, Hip abd/add Supine Reps: 12 Seated Therapy Exercises: Ankle pumps, Sit to stand, Long arc quads, Hip flexion Seated Reps: 12 Assessment Current Status: Good Progress PT Short Term Goals Short Term Goals Time Frame: Sep 12, 2017 Transfers (B,C,W/C) (FIM): 6 Gait (FIM): 4 Gait Assistive Device: FWW PT Tobacco Sprayer Goals Tobacco Sprayer Goals PT Half-Way Goals Time Frame: Sep 20, 2017 Transfers (B,C,W/C) (FIM): 7 Sit to Lying (QC): 6 Lying-Sitting on Side/Bed(QC): 6 Sit to Stand (QC): 6 Roll Left to Right (QC): 6 Chair/Fnu-ws-Avivx Xfer(QC): 6 Car Transfer (QC): 6 Does the Patient Walk: Yes Gait (FIM): 5 (household exception) Gait distance (FIM): 1=357-54 ft Distance: 50 ft Walk 10 feet (QC): 6 Walk 10ft-Uneven Surface(QC): 6 Walk 50ft with 2 Turns (QC): 6 Walk 150 ft (QC): 9 (too far for her to hop) Gait Assistive Device: FWW Does the Pt use WC or Scooter?: No Stairs (FIM): 5 (household exception) # of Steps: 4 1 Step (curb) (QC): 6 4 Steps (QC): 6 12 Steps (QC): 88 Picking up an Object (QC): 4 PT Plan Treatment/Plan Treatment Plan: Continue Plan of Care Treatment Plan: Bed Mobility, Education, Functional Activity Félix, Functional Strength, Group Therapy, Gait, Safety, Therapeutic Exercise, Transfers Treatment Duration: Sep 20, 2017 Frequency: At least 5 of 7 days/Wk (IRF) Estimated Hrs Per Day: 1.5 hours per day Patient and/or Family Agrees t: Yes Safety Risks/Education Patient Education: Gait Training, Transfer Techniques, Reviewed Precautions, Correct Positioning, Safety Issues Teaching Recipient: Patient Teaching Methods: Demonstration, Discussion Response to Teaching: Verbalize Understanding, Return Demonstration, Reinforcement Needed Time/GCodes Time In: 1120 Time Out: 1145 Total Billed Treatment Time: 25 Total Billed Treatment 1,GT15,EX10 G Codes Necessary: AMBER Acevedo PLASTIC WELDER Sep 08, 2017 12:04
[2017-09-08 17:02] VITALS: BP 139/69
[2017-09-09 06:30] VITALS: BP 132/69
[2017-09-09] MEDS: RT-ALBUTEROL SULF 2.5 MG/3 ML PRE-MIX VIAL INH SCH ×2 (07:02→18:53)
[2017-09-09] MEDS: ASCORBIC ACID (VIT C) 500 MG TABLET PO SCH ×2 (08:08→19:32)
[2017-09-09] MEDS: VITAMIN D3 400 UNITS (CHOLECALCIFEROL) TABLET PO SCH ×3 (08:08→18:18)
[2017-09-09] MEDS: MULTIVIT W/MINERALS TAB (THERAGRAN M) PO SCH (12:04)
[2017-09-09 17:13] VITALS: BP 147/64
[2017-09-10 05:01] VITALS: BP 126/71
[2017-09-10] MEDS: RT-ALBUTEROL SULF 2.5 MG/3 ML PRE-MIX VIAL INH SCH ×3 (06:58→22:09)
--- NOTE | 2017-09-10 08:25 | Progress Note (SOAP) ---
Subjective Time Seen by Provider: 08:25 Subjective/Events-last exam Bone scan negative for prosthesis being loose. To do MRI for fractures. Patient still has bronchitis but getting better Objective Exam Vital Signs Date Time Temp Pulse Resp B/P (MAP) Pulse Ox O2 Delivery O2 Flow Rate FiO2 09/10/17 06:58 98 Room Air 09/10/17 05:01 97.0 72 18 126/71 (89) 96 Room Air 09/09/17 20:00 Room Air 09/09/17 18:53 97 Room Air 09/09/17 17:13 97.2 80 16 147/64 (91) 96 Room Air 09/09/17 09:44 Room Air I & O 09/10/17 07:00 Intake Total 1681 ml Balance 1681 ml Capillary Refill : General Appearance: No Apparent Distress, Thin Assessment/Plan Assessment/Plan Assess & Plan/Chief Complaint Right hip problem. To be evaluated by orthopedic. . 09/07/17. Right hip problem. To have bone scan today. Waiting for results. . 09/09/17. Right hip problem. Bone scan does not show looseness some prosthesis. Patient to have MRI.. Patient states bronchitis is improving Clinical Quality Measures Admission Status Admission Dx Orthopedic problem. Pain in the right hip. Bronchitis last week. Sinusitis. Loose exam with femur DVT/VTE Risk/Contraindication: Risk Factor Score Per Nursin RFS Level Per Nursing on Admit: 2=Moderate MAG LI DO Sep 10, 2017 08:25
[2017-09-10] MEDS: ASCORBIC ACID (VIT C) 500 MG TABLET PO SCH ×2 (08:40→20:39)
[2017-09-10] MEDS: VITAMIN D3 400 UNITS (CHOLECALCIFEROL) TABLET PO SCH ×3 (08:40→18:39)
--- NOTE | 2017-09-10 11:00 | Physical Therapy Daily Note ---
PT Daily Note-Current Subjective Pt. states she cant walk very far, c/o her shoulders and arms are a little sore and tired from wt bearing. States today is the farthest she has ever walked since this incident. Pt. states she wont be able to get all the help she needs at her home if she were to return soon and really wants to go to [facility] for further rehab. States she wanted to go there initially but did not have the required 3 midnights etc. Pt. spoke to SW during Rx time RE: admission to [facility] Pain Numeric Pain Scale: 2 Location: Left Location Body Site: Shoulder Pain Description: Ache Mental Status Patient Orientation: Normal For Age Transfers Functional [place] Measure 0=Not Assessed/NA 4=Minimal Assistance 1=Total Assistance 5=Supervision or Setup 2=Maximal Assistance 6=Modified [place] 3=Moderate Assistance 7=Complete IndependenceIRFPAI Quality Coding Scale 6 Independent with activity with or without an assistive device 5 Patient requires set up or clean up by helper. Patient completes activity by themselves 4 Supervision or touching assist (CGA). [place] provide cues , steadying assist 3 The helper provides less than half the effort to complete the activity 2 The helper provides more than half the effort to complete the activity 1 Dependent. The helper does all the effort to complete an activity 7 Patient refused to complete or attempt activity 9 The patient did not perform the activity before the current illness or injury 88 Not attempted due to Medical conditions or safety concerns Transfers (B, C, W/C) (FIM): 6 Scootin Rollin Supine to/from Sit: 6 Sit to/from Stand: 6 Bed to/from Chair: 6 Car Transfer (QC): 5 Weight Bearing Right Lower Extremity: Right Touch Toe Bearing Left Lower Extremity: Left Full Weight Bearing Per physician office in [place] (Dr. Kim) "limit WB on the right LE" Gait Training Does the Patient Walk?: Yes Gait (FIM): 2 Distance (FIM): 3=734-17 ft (70x2,40x3) Gait Level of Assist: 5 Gait Persons Needed: 1 Gait Assistive Device: FWW pt. had previously decided she felt safer to walk NWBing right, but with her c/ o of such fatigue and soreness this [employer] initiated TTWB right ( as ordered). Pt. was able to grasp this today and found this to be less stressful for gait. Wheelchair Training Does the Pt Use a Wheelchair?: Yes Wheelchair (FIM): 4 Wheelchair Distance: 3=150 ft Wheelchair Level of Assist: 5 Type of Wheelchair: Manual needed instruction to manage w/c but did well Exercises Supine Ex: Ankle pumps, Heel Slides, Hip abd/add Supine Reps: 10 Seated Therapy Exercises: Ankle pumps, Sit to stand, Long arc quads, Hip flexion, Hip abd/add Seated Reps: 15 Treatments discussed with pt. that we need to daily show and be making regular progress with re: to mobility and function. And that if we cant make progress walking we should attempt w/c mobility for part of the rehab rx time Assessment Current Status: Good Progress PT Short Term Goals Short Term Goals Time Frame: Sep 12, 2017 Transfers (B,C,W/C) (FIM): 6 Gait (FIM): 4 Gait Assistive Device: FWW PT Fdc Goals Fdc Goals PT Fdc Goals Time Frame: Sep 20, 2017 Transfers (B,C,W/C) (FIM): 7 Sit to Lying (QC): 6 Lying-Sitting on Side/Bed(QC): 6 Sit to Stand (QC): 6 Rollin Roll Left to Right (QC): 6 Chair/Sjo-yc-Fnifd Xfer(QC): 6 Car Transfer (QC): 6 Does the Patient Walk: Yes Gait (FIM): 5 (household exception) Gait distance (FIM): 5=353-52 ft Distance: 50 ft Walk 10 feet (QC): 6 Walk 10ft-Uneven Surface(QC): 6 Walk 50ft with 2 Turns (QC): 6 Walk 150 ft (QC): 9 (too far for her to hop) Gait Assistive Device: FWW Does the Pt use WC or Scooter?: No Stairs (FIM): 5 (household exception) # of Steps: 4 1 Step (curb) (QC): 6 4 Steps (QC): 6 12 Steps (QC): 88 Picking up an Object (QC): 4 PT Plan Treatment/Plan Treatment Plan: Continue Plan of Care Treatment Plan: Bed Mobility, Education, Functional Activity Félix, Functional Strength, Group Therapy, Gait, Safety, Therapeutic Exercise, Transfers Treatment Duration: Sep 20, 2017 Frequency: At least 5 of 7 days/Wk (IRF) Estimated Hrs Per Day: 1.5 hours per day Patient and/or Family Agrees t: Yes Safety Risks/Education Patient Education: Gait Training, Transfer Techniques, Correct Positioning, W/ C Management, Disease Process, Safety Issues Teaching Recipient: Patient Teaching Methods: Demonstration, Discussion Response to Teaching: Verbalize Understanding, Return Demonstration, Reinforcement Needed Time/GCodes Time In: 1000 Time Out: 1100 Total Billed Treatment Time: 60 Total Billed Treatment 1,wc15m,GT25m,EX20m G Codes Necessary: AMBER Acevedo [employer] Sep 10, 2017 11:00
--- NOTE | 2017-09-10 11:13 | Cardiology Progress Note ---
Subjective Date Seen by Provider: Sep 10, 2017 Time Seen by Provider: 11:12 Subjective/Events-last exam Patient is in bed, feeling better, denied any chest pain or shortness of breath , all her questions were answered and discussed in details Review of Systems General: No Chills, No Night Sweats, No Fatigue, No Malaise, No Appetite, No Other HEENT: No Head Aches, No Visual Changes, No Eye Pain, No Ear Pain, No Dysphasia , No Sinus Congestion, No Post Nasal Drip, No Sore Throat, No Other Pulmonary: No Dyspnea, No Cough, No Pleuritic Chest Pain, No Other Cardiovascular: No: Chest Pain, Palpitations, Orthopnea, Paroxysmal Noc. Dyspnea, Edema, Lt Headedness, Other Objective-Cardiology Exam Last Set of Vital Signs Vital Signs 09/10/17 09/10/17 05:01 06:58 Temp 97.0 Pulse 72 Resp 18 B/P (MAP) 126/71 (89) Pulse Ox 98 O2 Delivery Room Air Capillary Refill : I&O Intake and Output 09/10/17 00:00 Intake Total 1781 ml Balance 1781 ml Intake Oral 1781 ml # Voids 11 # Bowel Movements 1 General: Alert, Oriented X3, Cooperative, No Acute Distress, Other (The patient is seen in her room this evening.Appreciate Therapy and DR Llanes notes) HEENT: Atraumatic, PERRLA, EOMI, Mucous Memb Moist/[place] Neck: Supple, No JVD Lungs: Clear to Auscultation Heart: Regular Rate Abdomen: Normal Bowel Sounds, No Tenderness Extremities: No Clubbing, No Cyanosis, No Edema Neuro: Other (Mild weakness at Rt hip with some guarding) Psych/Mental Status: Mental Status NL, Mood NL, Other (Patient is SBA for transfers) A/P-Cardiology Admission Diagnosis Chest pain, nonspecific etiology Palpitation Hypertension Hyperlipidemia Assessment/Plan Atypical chest pain, unlikely to be cardiac in nature, stress test was done in March 2015 with no significant ischemic abnormality. I will continue monitoring at this time, no changes are recommended. History of palpitation, reporting improvement, no further episodes were reported History of hypertension, currently off her blood pressure medication and her blood pressure is well controlled. planning to evaluate 2-D echocardiogram. Continue to monitor Questionable hyperlipidemia, has been on Crestor previously. I will evaluate lipid profile and monitor. Multiple orthopedic problems generalized pain, lower extremity pain, receiving physical therapy Clinical Quality Measures DVT/VTE Risk/Contraindication: Risk Factor Score Per Nursin RFS Level Per Nursing on Admit: 2=Moderate PRATIMA AU MD Sep 10, 2017 11:13
--- NOTE | 2017-09-10 12:55 | Occupational Ther Daily Note ---
OT Current Status-Daily Note Subjective Pt alert, lying in bed. Pt agrees to therapy. No c/o pain. Physician came into room and pt had multiple questions for him. Pt asked BILLS if she had to walk anywhere because she had already done a lot of walking today. Mental Status/Objective Patient Orientation: Person, Place, Time, Situation Functional [place] Measure 0=Not Assessed/NA 4=Minimal Assistance 1=Total Assistance 5=Supervision or Setup 2=Maximal Assistance 6=Modified [place] 3=Moderate Assistance 7=Complete [place] ADL-Treatment Pt declines shower. Pt able to don/doff shoes by self after set up. Pt able to go from supine to sitting and back with HOB slightly raised using bedrails. Pt able to complete toileting and toilet transfer by self using FWW. Functional [place] Measure 0=Not Assessed/NA 4=Minimal Assistance 1=Total Assistance 5=Supervision or Setup 2=Maximal Assistance 6=Modified [place] 3=Moderate Assistance 7=Complete IndependenceIRFPAI Quality Coding Scale 6 Independent with activity with or without an assistive device 5 Patient requires set up or clean up by helper. Patient completes activity by themselves 4 Supervision or touching assist (CGA). [place] provide cues , steadying assist 3 The helper provides less than half the effort to complete the activity 2 The helper provides more than half the effort to complete the activity 1 Dependent. The helper does all the effort to complete an activity 7 Patient refused to complete or attempt activity 9 The patient did not perform the activity before the current illness or injury 88 Not attempted due to Medical conditions or safety concerns Toileting (FIM): 6 Toileting Hygiene (QC): 6 Toilet/Commode Transfer (FIM): 6 Other Treatment Pt ambulated to w/c by bathroom from bed. Pt maneuvered w/c from room to therapy gym by self. Arm bike completed duration 15 min without resistance to increase activity tolerance and strengthening for daily functional tasks. Completed resistive pegs, 50 each hand, to increase pinch and medical research scientist strength for daily fine motor tasks. Pt then maneuvered w/c back to room. Pt's lunch came and was place in front of pt in bed. After therapy, pt sitting up in bed to eat lunch. Call light/phone in reach. All needs met in room. OT Short Term Goals Short Term Goals Time Frame: Sep 12, 2017 Transfers (B,C,W/C) (FIM): 6 Toilet/Commode Transfer(FIM): 5 Additional Short Term Goals: 1-Demonstrate ADL Tasks, 2-Verbalize Understanding , 3-ImproveStrength/Félix 1=Demonstrate adherence to instructed precautions during ADL tasks. 2=Patient will verbalize/demonstrate understanding of assistive devices/ modifications for ADL. 3=Patient will improve strength/tolerance for activity to enable patient to perform ADL's. OT Head Of Marketing Goals Head Of Marketing Goals Time Frame: Sep 19, 2017 Eating (FIM): 7 Eating (QC): 6 Groomin Oral Hygiene (QC): 6 Bathing(FIM): 6 Shower/Bathe Self (QC): 6 Upper Body Dressing(FIM): 6 Upper Body Dressing (QC): 6 Lower Body Dressing(FIM): 6 Lower Body Dressing (QC): 6 On/Off Footwear (QC): 6 Toileting(FIM): 6 Toileting Hygiene (QC): 6 Toilet/Commode Transfer(FIM): 6 Toilet/Commode Transfer (QC): 6 Shower Transfer(FIM): 6 Additional Goals: 1-Demonstrate ADL Tasks, 2-Verbalize Understanding, 3- ImproveStrength/Félix 1=Demonstrate adherence to instructed precautions during ADL tasks. 2=Patient will verbalize/demonstrate understanding of assistive devices/ modifications for ADL. 3=Patient will improve strength/tolerance for activity to enable patient to perform ADL's. OT Education/Plan Problem List/Assessment Pt would benefit from skilled OT to increase her independence in basic self care to allow her to safely return home Discharge Recommendations Plan/Recommendations: Continue POC Treatment Plan/Plan of Care Patient would benefit from OT for education, treatment and training to promote independence in ADL's, mobility, safety and/or upper extremity function for ADL' s. Plan of Care: ADL Retraining, Functional Mobility, Group Exercise/Act as Ind ( education, exercise, functional activities, socialization), UE Funct Exercise/ Act, UE Neuromus Re-Ed/Coord Treatment Duration: Sep 19, 2017 Frequency: At least 5 of 7 days/Wk (IRF) Estimated Hrs Per Day: 1.5 hours per day Agreement: Yes Rehab Potential: Good Time/GCodes Start Time: 11:00 Stop Time: 12:00 Total Time Billed (hr/min): 60 Billed Treatment Time 1 visit-ADL 1 (15 min) EX 3 (45 min) RACHEL SANABRIA Sep 10, 2017 12:55
[2017-09-10] MEDS: MULTIVIT W/MINERALS TAB (THERAGRAN M) PO SCH (13:23)
--- NOTE | 2017-09-10 14:40 | Therapy Group Daily Note ---
Therapy Daily Group Note Other/Notes Patient's participated in group therapy in the common area of rehab this afternoon. Each patient ambulated or was transported to the common area of rehab and placed with the group of other patient's. Each patient had to introduce themselves, state where they were from, and answer a question that involves memory and critical thinking. Patient's were educated about strokes and heart disease and they participated in group discussion. Then patient's performed a balloon activity that worked on reaction time and upper extremity strength and ROM. At the end, patients ambulated or were transported back to their room and placed in bed or chair with nurse call, phone, tray, all needs met. Nancy missed about 15 min of the education because she had to have an ECHO study done in her room. She came back to group therapy when it was done. She participated in group therapy for 60 min. Start Time: 13:00 Stop Time: 14:15 Total Billed Treatment Time: 60 Total Billed Treatment 1 visit GRP 60' EVONNE RODRIGUEZ PT Sep 10, 2017 14:40
--- NOTE | 2017-09-10 16:50 | Diagnostic Imaging Report ---
PROCEDURE: MRI pelvis without contrast. TECHNIQUE: Multiplanar, multisequence MRI of the pelvis was performed without contrast. INDICATION: Low back pain radiating into right hip. Abnormal nuclear medicine bone scan. COMPARISON: Bone scan from 09/07/2017. FINDINGS: There are bilateral nondisplaced sacral alar insufficiency fractures. This is larger and more conspicuous on the right with granulation tissue present in the fracture cleft. The left-sided fracture cleft is hairline in nature. The fractures do not extend into the SI joints or sacral neuroforamen. 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 Left hip shows no osteonecrosis or fracture on provided large [id number] imaging. Pelvic musculature is symmetric in bulk and signal. IMPRESSION: 1. 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 The right-sided fracture is larger and may account for right-sided hip pain. Dictated by: Dictated on workstation # [id number]
[2017-09-10 17:20] VITALS: BP 144/63
--- NOTE | 2017-09-10 18:41 | PM & R (SOAP) Progress Note ---
Subjective This was a face to face visit with the patient. Date Seen by Provider: Sep 10, 2017 Time Seen by Provider: 18:15 Subjective/Events-last exam Patient was seen in her room this evening Discussed MRI results with patient re sacral insuffiiciency fractures on rt Other imaging studies revaled no loosening. Patient Modifedi Independent to supervision for transfers. Objective Physician Exam Last Set of Vital Signs Vital Signs Date Time Temp Pulse Resp B/P (MAP) Pulse Ox O2 Delivery O2 Flow Rate FiO2 09/10/17 17:20 97.2 74 20 144/63 (90) 98 Room Air Capillary Refill : I&O Intake and Output 09/10/17 00:00 Intake Total 1781 ml Balance 1781 ml Intake Oral 1781 ml # Voids 11 # Bowel Movements 1 General: Alert, Oriented X3, Cooperative, No Acute Distress, Other (The patient is seen in her room this evening.Appreciate Therapy and DR Llanes notes) HEENT: Atraumatic, PERRLA, EOMI, Mucous Memb Moist/[place] Neck: Supple, No JVD Lungs: Clear to Auscultation Heart: Regular Rate Abdomen: Normal Bowel Sounds, No Tenderness Extremities: No Clubbing, No Cyanosis, No Edema Neuro: Other (Mild weakness at Rt hip with some guarding) Psych/Mental Status: Mental Status NL, Mood NL, Other (Patient is SBA for transfers) Assessment/Plan Assessment and Plan Rt Hip pain most likely as a result of rt sacral insufficiency fracture RT THR done in 2011 OA Osteoporosis Plan Continue PT/OT Team Conference 09-12-17 Pain management (1) Loosening of prosthetic hip Status: Acute Co-Morbidities that are continuing to impact the rehab process: (include details ) TERRI BOSS MD Sep 10, 2017 18:41
[2017-09-11 05:03] VITALS: BP 144/69
--- NOTE | 2017-09-11 08:36 | Progress Note (SOAP) ---
Subjective Time Seen by Provider: 08:35 Subjective/Events-last exam Patient doing better using the walker. Pain is less. MRI shows fracture sacral region. Objective Exam Vital Signs Date Time Temp Pulse Resp B/P (MAP) Pulse Ox O2 Delivery O2 Flow Rate FiO2 09/11/17 05:03 97.1 73 18 144/69 (94) 97 Room Air 09/10/17 22:09 95 Room Air 09/10/17 21:00 Room Air 09/10/17 17:20 97.2 74 20 144/63 (90) 98 Room Air 09/10/17 08:42 Room Air I & O 09/11/17 07:00 Intake Total 1550 ml Balance 1550 ml Capillary Refill : General Appearance: No Apparent Distress, Thin Assessment/Plan Assessment/Plan Assess & Plan/Chief Complaint Right hip problem. To be evaluated by orthopedic. . 09/07/17. Right hip problem. To have bone scan today. Waiting for results. . 09/09/17. Right hip problem. Bone scan does not show looseness some prosthesis. Patient to have MRI.. Patient states bronchitis is improving. . 09/11/17. Right hip problem. Fractures. MRI positive. No complaints about bronchitis Clinical Quality Measures Admission Status Admission Dx Orthopedic problem. Pain in the right hip. Bronchitis last week. Sinusitis. Loose exam with femur DVT/VTE Risk/Contraindication: Risk Factor Score Per Nursin RFS Level Per Nursing on Admit: 2=Moderate MAG LI DO Sep 11, 2017 08:36
[2017-09-11] MEDS: RT-ALBUTEROL SULF 2.5 MG/3 ML PRE-MIX VIAL INH SCH ×3 (09:42→19:47)
--- NOTE | 2017-09-11 10:48 | Occupational Ther Daily Note ---
OT Current Status-Daily Note Subjective Pt seen in room, up in bed, agreeable to OT. No pain reported. Appearance Alert, cooperative Mental Status/Objective Functional [place] Measure 0=Not Assessed/NA 4=Minimal Assistance 1=Total Assistance 5=Supervision or Setup 2=Maximal Assistance 6=Modified [place] 3=Moderate Assistance 7=Complete [place] ADL-Treatment Pt was able to sit up to EOB without help. Sit to stand without assistance or cues. Walked SBA, FWW to closet to retrieve clean clothes, with pt educ for walker placement and use of walker for transporting clothes. She walked to bathroom with SBA, FWW and transferred into shower with pt educ modified technique. She washed and dried all parts with setup and pt educ modified technique for drying feet. She donned robe in shower and walked to sit EOB to dress. Pt educ technique for using sock aid and dressing stick. Pt appeared to follow weight bearing restrictions throughout. Pt left up at EOB, all needs met. Functional [place] Measure 0=Not Assessed/NA 4=Minimal Assistance 1=Total Assistance 5=Supervision or Setup 2=Maximal Assistance 6=Modified [place] 3=Moderate Assistance 7=Complete IndependenceIRFPAI Quality Coding Scale 6 Independent with activity with or without an assistive device 5 Patient requires set up or clean up by helper. Patient completes activity by themselves 4 Supervision or touching assist (CGA). [place] provide cues , steadying assist 3 The helper provides less than half the effort to complete the activity 2 The helper provides more than half the effort to complete the activity 1 Dependent. The helper does all the effort to complete an activity 7 Patient refused to complete or attempt activity 9 The patient did not perform the activity before the current illness or injury 88 Not attempted due to Medical conditions or safety concerns Bathing (FIM): 5 (Washed and dreid all parts. transfer tub bench, grab bar, hand held shower, long handled sponge) Upper Body (FIM): 5 (SBA at closet to retrieve clean clothes, FWW for balance) Lower Body Dressing (FIM): 5 (SBA at closet to retrieve clean clothes, FWW for balance. Sock aid, dressing stick) Shower Transfer(FIM): 5 (Skilled cues, mod technique. Shower bench, grab bars, FWW) Education OT Patient Education: Modified ADL techniques, Progress toward Goal/Update tx plan, Purpose of tx/functional activities, Safety issues, Transfer techniques, Use of adapted equipment Teaching Recipient: Patient Teaching Methods: Discussion Response to Teaching: Verbalize Understanding, Return Demonstration, Reinforcement Needed OT Short Term Goals Short Term Goals Time Frame: Sep 12, 2017 Transfers (B,C,W/C) (FIM): 6 Toilet/Commode Transfer(FIM): 5 Additional Short Term Goals: 1-Demonstrate ADL Tasks, 2-Verbalize Understanding , 3-ImproveStrength/Félix 1=Demonstrate adherence to instructed precautions during ADL tasks. 2=Patient will verbalize/demonstrate understanding of assistive devices/ modifications for ADL. 3=Patient will improve strength/tolerance for activity to enable patient to perform ADL's. OT Lunchroom Aide Goals Lunchroom Aide Goals Time Frame: Sep 19, 2017 Eating (FIM): 7 Eating (QC): 6 Groomin Oral Hygiene (QC): 6 Bathing(FIM): 6 Shower/Bathe Self (QC): 6 Upper Body Dressing(FIM): 6 Upper Body Dressing (QC): 6 Lower Body Dressing(FIM): 6 Lower Body Dressing (QC): 6 On/Off Footwear (QC): 6 Toileting(FIM): 6 Toileting Hygiene (QC): 6 Toilet/Commode Transfer(FIM): 6 Toilet/Commode Transfer (QC): 6 Shower Transfer(FIM): 6 Additional Goals: 1-Demonstrate ADL Tasks, 2-Verbalize Understanding, 3- ImproveStrength/Félix 1=Demonstrate adherence to instructed precautions during ADL tasks. 2=Patient will verbalize/demonstrate understanding of assistive devices/ modifications for ADL. 3=Patient will improve strength/tolerance for activity to enable patient to perform ADL's. OT Education/Plan Problem List/Assessment Pt would benefit from skilled OT to increase her independence in basic self care to allow her to safely return home Discharge Recommendations Plan/Recommendations: Continue POC Treatment Plan/Plan of Care Patient would benefit from OT for education, treatment and training to promote independence in ADL's, mobility, safety and/or upper extremity function for ADL' s. Plan of Care: ADL Retraining, Functional Mobility, Group Exercise/Act as Ind ( education, exercise, functional activities, socialization), UE Funct Exercise/ Act, UE Neuromus Re-Ed/Coord Treatment Duration: Sep 19, 2017 Frequency: At least 5 of 7 days/Wk (IRF) Estimated Hrs Per Day: 1.5 hours per day Agreement: Yes Rehab Potential: Good Time/GCodes Start Time: 08:30 Stop Time: 09:30 Total Time Billed (hr/min): 60 Billed Treatment Time visit, 60 minutes ADL EUNICE DONNELLY OT Sep 11, 2017 10:48
--- NOTE | 2017-09-11 11:18 | PM & R (SOAP) Progress Note ---
Subjective This was a face to face visit with the patient. Date Seen by Provider: Sep 11, 2017 Time Seen by Provider: 08:05 Subjective/Events-last exam Patient was seen in her room this AM Patient SBA for gait and transfers with walker Patient limits her wt on her rt Leg RN sending MRI results to Ortho office in [place] to review. Review of Systems Musculoskeletal: leg pain Objective Physician Exam Last Set of Vital Signs Vital Signs Date Time Temp Pulse Resp B/P (MAP) Pulse Ox O2 Delivery O2 Flow Rate FiO2 09/11/17 09:44 98 Room Air 09/11/17 05:03 97.1 73 18 144/69 (94) Capillary Refill : I&O Intake and Output 09/11/17 00:00 Intake Total 1600 ml Balance 1600 ml Intake Oral 1600 ml # Voids 9 # Bowel Movements 2 General: Alert, Oriented X3, Cooperative, No Acute Distress, Other (The patient is seen in her room this evening.Appreciate Therapy and DR Llanes notes) HEENT: Atraumatic, PERRLA, EOMI, Mucous Memb Moist/[place] Neck: Supple, No JVD Lungs: Clear to Auscultation Heart: Regular Rate Abdomen: Normal Bowel Sounds, No Tenderness Extremities: No Clubbing, No Cyanosis, No Edema Neuro: Other (Mild weakness at Rt hip with some guarding) Psych/Mental Status: Mental Status NL, Mood NL, Other (Patient is SBA for transfers) Assessment/Plan Assessment and Plan Rt hip pain mostlikely due to RT sacral insufficiency fracture Ortho to reviewwill see if Local ortho can see. 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
--- NOTE | 2017-09-11 11:57 | Physical Therapy Daily Note ---
PT Daily Note-Current Subjective Pt sitting up in bed upon arrival. Pt agrees to PT tx. DIRECTOR INTERNATIONAL continues to try to keep pt on task during tx, pt wanting to give complete medical history for last two years. Pain Numeric Pain Scale: 5-Moderate Pain Location: Left Location Body Site: Thigh Pain Description: Ache Comment: Pt reports discomfort in LLE after ambulation at end of tx. Mental Status Patient Orientation: Person, Place, Time, Situation Transfers Functional [place] Measure 0=Not Assessed/NA 4=Minimal Assistance 1=Total Assistance 5=Supervision or Setup 2=Maximal Assistance 6=Modified [place] 3=Moderate Assistance 7=Complete IndependenceIRFPAI Quality Coding Scale 6 Independent with activity with or without an assistive device 5 Patient requires set up or clean up by helper. Patient completes activity by themselves 4 Supervision or touching assist (CGA). [place] provide cues , steadying assist 3 The helper provides less than half the effort to complete the activity 2 The helper provides more than half the effort to complete the activity 1 Dependent. The helper does all the effort to complete an activity 7 Patient refused to complete or attempt activity 9 The patient did not perform the activity before the current illness or injury 88 Not attempted due to Medical conditions or safety concerns Scootin Sit to/from Stand: 6 Sit to Stand (QC): 6 Weight Bearing Right Lower Extremity: Right Touch Toe Bearing Left Lower Extremity: Left Full Weight Bearing Per physician office in [place] (Dr. Kim) "limit WB on the right LE" Gait Training Does the Patient Walk?: Yes Distance (FIM): 3=150 ft Distance: 75', 50', 75' Walk 10 feet (QC): 5 Walk 50 ft with 2 Turns(QC): 5 Walk 150 ft (QC): 5 Gait Level of Assist: 5 Gait Persons Needed: 1 Gait Assistive Device: FWW Pt hops and tries to maintain WB status but needs VC to remind. Treatments Pt tries to give DIRECTOR INTERNATIONAL full medical history for last couple of years, while DIRECTOR INTERNATIONAL tries to keep pt on task. Pt asks about MRI and other testing results. After discussion, Pt then transfers to EOB to put on shoes then transfers to standing using FWW at Mod I. Pt uses restroom before leaving room for ambulation. Pt gets up and ambulates in restroom while staff is getting wipes after given instructions to pull communications department chairperson light cord if done. DIRECTOR INTERNATIONAL gave instruction over safety concern for this item. Pt ambulates in hallway and [facility] using FWW at SBA for VC for WB status. Pt takes a few short rest breaks to recover. Pt returns to room to rest at end of walk. Pt returns to laying in bed at end of tx. Pt has all needs met, including call light in hand. Assessment Current Status: Fair Progress Pt needs VC to stay on task instead of focusing on stories pt is telling during tx. Pt fatigues easy and reports pain by end of tx. Pt reminded of WB status. PT Short Term Goals Short Term Goals Time Frame: Sep 12, 2017 Transfers (B,C,W/C) (FIM): 6 Gait (FIM): 4 Gait Assistive Device: FWW PT Pathology Teacher Goals Pathology Teacher Goals PT Custodial Goals Time Frame: Sep 20, 2017 Transfers (B,C,W/C) (FIM): 7 Sit to Lying (QC): 6 Lying-Sitting on Side/Bed(QC): 6 Sit to Stand (QC): 6 Rollin Roll Left to Right (QC): 6 Chair/Nms-ys-Qcslw Xfer(QC): 6 Car Transfer (QC): 6 Does the Patient Walk: Yes Gait (FIM): 5 (household exception) Gait distance (FIM): 0=766-31 ft Distance: 50 ft Walk 10 feet (QC): 6 Walk 10ft-Uneven Surface(QC): 6 Walk 50ft with 2 Turns (QC): 6 Walk 150 ft (QC): 9 (too far for her to hop) Gait Assistive Device: FWW Does the Pt use WC or Scooter?: No Stairs (FIM): 5 (household exception) # of Steps: 4 1 Step (curb) (QC): 6 4 Steps (QC): 6 12 Steps (QC): 88 Picking up an Object (QC): 4 PT Plan Problem List Problem List: Activity Tolerance, Functional Strength, Safety, Balance, Gait Treatment/Plan Treatment Plan: Continue Plan of Care Treatment Plan: Bed Mobility, Education, Functional Activity Félix, Functional Strength, Group Therapy, Gait, Safety, Therapeutic Exercise, Transfers Treatment Duration: Sep 20, 2017 Frequency: At least 5 of 7 days/Wk (IRF) Estimated Hrs Per Day: 1.5 hours per day Patient and/or Family Agrees t: Yes Safety Risks/Education Patient Education: Gait Training, Correct Positioning, Disease Process, Safety Issues Teaching Recipient: Patient Teaching Methods: Discussion Response to Teaching: Verbalize Understanding, Reinforcement Needed Time/GCodes Time In: 1000 Time Out: 1105 Total Billed Treatment Time: 65 Total Billed Treatment 1, GT x2 (35m) & FA x2 (30m) G Codes Necessary: LUCRECIA Edmondson DIRECTOR INTERNATIONAL Sep 11, 2017 11:57
[2017-09-11] MEDS: MULTIVIT W/MINERALS TAB (THERAGRAN M) PO SCH (12:47)
[2017-09-11] MEDS: VITAMIN D3 400 UNITS (CHOLECALCIFEROL) TABLET PO SCH ×3 (12:47→17:20)
[2017-09-11] MEDS: ASCORBIC ACID (VIT C) 500 MG TABLET PO SCH ×2 (12:47→19:21)
--- NOTE | 2017-09-11 13:53 | Occupational Ther Daily Note ---
OT Current Status-Daily Note Subjective Pt alert, lying in bed. Pt agrees to therapy. No c/o pain. Mental Status/Objective Functional [place] Measure 0=Not Assessed/NA 4=Minimal Assistance 1=Total Assistance 5=Supervision or Setup 2=Maximal Assistance 6=Modified [place] 3=Moderate Assistance 7=Complete [place] ADL-Treatment Pt able to go from supine to sitting EOB with HOB slightly raised. Ambulated to bathroom using FWW with supervision, adhering to wt bearing precautions. Completed toileting with mod I and ambulated to sink to wash hands and complete grooming with supervision. Functional [place] Measure 0=Not Assessed/NA 4=Minimal Assistance 1=Total Assistance 5=Supervision or Setup 2=Maximal Assistance 6=Modified [place] 3=Moderate Assistance 7=Complete IndependenceIRFPAI Quality Coding Scale 6 Independent with activity with or without an assistive device 5 Patient requires set up or clean up by helper. Patient completes activity by themselves 4 Supervision or touching assist (CGA). [place] provide cues , steadying assist 3 The helper provides less than half the effort to complete the activity 2 The helper provides more than half the effort to complete the activity 1 Dependent. The helper does all the effort to complete an activity 7 Patient refused to complete or attempt activity 9 The patient did not perform the activity before the current illness or injury 88 Not attempted due to Medical conditions or safety concerns Grooming (FIM): 5 Toileting (FIM): 6 Toileting Hygiene (QC): 6 Toilet/Commode Transfer (FIM): 5 Other Treatment Pt sat in chair with arms to complete medium resistance theraband exercises. Theraband and handout given for use in room. Pt completed 6 exercises 10 reps 1 set to learn appropriate movements. Pt requires verbal and physical cues to complete each exercise appropriately. Pt tolerated well. After therapy, pt lying in bed with call light/phone in reach. All needs met in room. Education OT Patient Education: Exercise program, Home exercise program Teaching Recipient: Patient Teaching Methods: Demonstration, Handout, Discussion Response to Teaching: Verbalize Understanding, Return Demonstration, Reinforcement Needed OT Short Term Goals Short Term Goals Time Frame: Sep 12, 2017 Transfers (B,C,W/C) (FIM): 6 Toilet/Commode Transfer(FIM): 5 Additional Short Term Goals: 1-Demonstrate ADL Tasks, 2-Verbalize Understanding , 3-ImproveStrength/Félix 1=Demonstrate adherence to instructed precautions during ADL tasks. 2=Patient will verbalize/demonstrate understanding of assistive devices/ modifications for ADL. 3=Patient will improve strength/tolerance for activity to enable patient to perform ADL's. OT Intermediate Goals Internal Grinder Set Up Operator Goals Time Frame: Sep 19, 2017 Eating (FIM): 7 Eating (QC): 6 Groomin Oral Hygiene (QC): 6 Bathing(FIM): 6 Shower/Bathe Self (QC): 6 Upper Body Dressing(FIM): 6 Upper Body Dressing (QC): 6 Lower Body Dressing(FIM): 6 Lower Body Dressing (QC): 6 On/Off Footwear (QC): 6 Toileting(FIM): 6 Toileting Hygiene (QC): 6 Toilet/Commode Transfer(FIM): 6 Toilet/Commode Transfer (QC): 6 Shower Transfer(FIM): 6 Additional Goals: 1-Demonstrate ADL Tasks, 2-Verbalize Understanding, 3- ImproveStrength/Félix 1=Demonstrate adherence to instructed precautions during ADL tasks. 2=Patient will verbalize/demonstrate understanding of assistive devices/ modifications for ADL. 3=Patient will improve strength/tolerance for activity to enable patient to perform ADL's. OT Education/Plan Problem List/Assessment Pt would benefit from skilled OT to increase her independence in basic self care to allow her to safely return home Discharge Recommendations Plan/Recommendations: Continue POC Treatment Plan/Plan of Care Patient would benefit from OT for education, treatment and training to promote independence in ADL's, mobility, safety and/or upper extremity function for ADL' s. Plan of Care: ADL Retraining, Functional Mobility, Group Exercise/Act as Ind ( education, exercise, functional activities, socialization), UE Funct Exercise/ Act, UE Neuromus Re-Ed/Coord Treatment Duration: Sep 19, 2017 Frequency: At least 5 of 7 days/Wk (IRF) Estimated Hrs Per Day: 1.5 hours per day Agreement: Yes Rehab Potential: Good Time/GCodes Start Time: 13:00 Stop Time: 13:30 Total Time Billed (hr/min): 30 Billed Treatment Time 1 visit-ADL 1 (10 min) EX 1 (20 min) RACHEL SANABRIA Sep 11, 2017 13:53
--- NOTE | 2017-09-11 15:09 | Physical Therapy Daily Note ---
PT Daily Note-Current Subjective Pt laying Supine in bed upon arrival. Pt agrees to Supine Ex in bed. Mental Status Patient Orientation: Person, Place, Time, Situation Transfers Functional [place] Measure 0=Not Assessed/NA 4=Minimal Assistance 1=Total Assistance 5=Supervision or Setup 2=Maximal Assistance 6=Modified [place] 3=Moderate Assistance 7=Complete IndependenceIRFPAI Quality Coding Scale 6 Independent with activity with or without an assistive device 5 Patient requires set up or clean up by helper. Patient completes activity by themselves 4 Supervision or touching assist (CGA). [place] provide cues , steadying assist 3 The helper provides less than half the effort to complete the activity 2 The helper provides more than half the effort to complete the activity 1 Dependent. The helper does all the effort to complete an activity 7 Patient refused to complete or attempt activity 9 The patient did not perform the activity before the current illness or injury 88 Not attempted due to Medical conditions or safety concerns Weight Bearing Right Lower Extremity: Right Touch Toe Bearing Left Lower Extremity: Left Full Weight Bearing Per physician office in [place] (Dr. Kim) "limit WB on the right LE" Exercises Supine Ex: Ankle pumps, Quad Set, Heel Slides, Straight leg raise, Hip abd/add Supine Reps: 15 Treatments Pt completes Supine Ex in bed with several rest breaks. Pt continues to need VC to stay on task during tx. Assessment Current Status: Fair Progress Pt gets preoccupied with medical history and previous diagnoses given, needs VC to stay on task. PT Short Term Goals Short Term Goals Time Frame: Sep 12, 2017 Transfers (B,C,W/C) (FIM): 6 Gait (FIM): 4 Gait Assistive Device: FWW PT Nuclear Process Engineer Goals Detention Goals PT Detention Goals Time Frame: Sep 20, 2017 Transfers (B,C,W/C) (FIM): 7 Sit to Lying (QC): 6 Lying-Sitting on Side/Bed(QC): 6 Sit to Stand (QC): 6 Rollin Roll Left to Right (QC): 6 Chair/Cwl-wo-Xbvcl Xfer(QC): 6 Car Transfer (QC): 6 Does the Patient Walk: Yes Gait (FIM): 5 (household exception) Gait distance (FIM): 6=860-27 ft Distance: 50 ft Walk 10 feet (QC): 6 Walk 10ft-Uneven Surface(QC): 6 Walk 50ft with 2 Turns (QC): 6 Walk 150 ft (QC): 9 (too far for her to hop) Gait Assistive Device: FWW Does the Pt use WC or Scooter?: No Stairs (FIM): 5 (household exception) # of Steps: 4 1 Step (curb) (QC): 6 4 Steps (QC): 6 12 Steps (QC): 88 Picking up an Object (QC): 4 PT Plan Problem List Problem List: Activity Tolerance, Functional Strength, Safety, Balance, Gait Treatment/Plan Treatment Plan: Continue Plan of Care Treatment Plan: Bed Mobility, Education, Functional Activity Félix, Functional Strength, Group Therapy, Gait, Safety, Therapeutic Exercise, Transfers Treatment Duration: Sep 20, 2017 Frequency: At least 5 of 7 days/Wk (IRF) Estimated Hrs Per Day: 1.5 hours per day Patient and/or Family Agrees t: Yes Safety Risks/Education Patient Education: Correct Positioning, Disease Process, Safety Issues Teaching Recipient: Patient Teaching Methods: Discussion Response to Teaching: Verbalize Understanding Time/GCodes Time In: 1330 Time Out: 1405 Total Billed Treatment Time: 35 Total Billed Treatment 1, EX x2 (35m) G Codes Necessary: LUCRECIA Edmondson SOFTWARE SPECIALIST Sep 11, 2017 15:09
[2017-09-11 17:15] VITALS: BP 133/67
--- NOTE | 2017-09-11 17:30 | Podiatry Progress Note ---
Standard Progress Note Progress Notes/Assess & Plan Date Seen by Provider: Sep 11, 2017 Time Seen by Provider: 17:25 Progress/Assessment & Plan Consult dictated. We discussed overall foot care for her neuroma of the right foot and for her onychomycosis. Foot care was given today. She is to follow up as needed. Final Diagnosis Onychomycosis, Neuropathy (mild), Neuroma right 3rd Interspace ROSALES GOULD DPIsaiah Sep 11, 2017 17:29
--- NOTE | 2017-09-11 22:10 | CONSULTATION REPORT ---
DATE OF SERVICE: 09/11/2017 REASON FOR CONSULT: Foot care. HISTORY OF PRESENT ILLNESS: The patient was admitted to the hospital for rehabilitation of proximal leg pain and possible stress fractures of the lower spine and hips. According to Dr. Jolly, the patient is progressing, but she is unable to reach for and care for her feet. She is currently complaining about toenails being long and uncomfortable, especially with attempted ambulation and shoe gear. She has had a history of a neuroma to the right foot, which has been treated conservatively with shoe modification. 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 This is according to the patient. There is a documentation of the orthopedic doctor feeling that there might be a stress fracture that is contributing to the hardware issue. She also wears a heel lift for limb length discrepancy. She also has a history of bronchitis, which apparently is improving. SOCIAL HISTORY: The patient denies tobacco, alcohol or illicit drug use. PHYSICAL EXAMINATION: VITAL SIGNS: The patient has stable vital signs at this point. She is afebrile. She is hypertensive at 144/69. GENERAL: This is a well-developed female in no apparent distress. EXTREMITIES: She has a 2/4 dorsalis pedis pulse bilaterally, 0/4 posterior tibial pulse bilaterally. Cap refill time is less than 3 seconds. No digital hair growth is noted bilaterally. NEUROLOGICAL: The patient has intact protective sensation per 10 gram monofilament wire examination bilaterally. Diminished vibratory sensation to the forefoot bilaterally. DERMATOLOGIC: The patient has some thick yellow dystrophic toenails with subungual debris to the right 1 and 5 and left 1, 3 and 5 digits. No open lesions are noted bilaterally. MUSCULOSKELETAL: She has 4/5 muscle strength to the four major quadrants of the foot bilaterally. She has a positive Pamela's sign to the right third intermetatarsal space. 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 ASSESSMENT: 1. Idiopathic neuropathy. 2. Onychomycosis. 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 PLAN: The toenails were debrided manually and mechanically. Betadine applied. We discussed appropriate neuroma care and shoe gear that would likely help with her symptoms. She is welcome to follow up in the office upon discharge. Job ID: [id number] DocumentID: [id number] Dictated Date: 09/11/2017 17:24:48 Postal Service Clerk Date: 09/11/2017 22:09:30 Dictated By: RAHUL PASTOR
[2017-09-12 05:04] VITALS: BP 132/68
--- NOTE | 2017-09-12 08:07 | Progress Note (SOAP) ---
Subjective Time Seen by Provider: 08:03 Subjective/Events-last exam Patient not in any pain anymore. Patient has sacral fractures. Patient voices no complaints today Objective Exam Vital Signs Date Time Temp Pulse Resp B/P (MAP) Pulse Ox O2 Delivery O2 Flow Rate FiO2 09/12/17 05:04 96.9 75 18 132/68 (89) 92 Room Air 09/11/17 20:00 Room Air 09/11/17 19:47 96 Room Air 09/11/17 17:15 98.1 82 18 133/67 (89) 99 Room Air 09/11/17 15:28 97 Room Air 09/11/17 13:00 Room Air 09/11/17 09:44 98 Room Air I & O 09/12/17 07:00 Intake Total 850 ml Balance 850 ml Capillary Refill : General Appearance: No Apparent Distress, Thin HEENT: Normal ENT Inspection Neck: Full Range of Motion Respiratory: No Accessory Muscle Use, No Respiratory Distress Cardiovascular: Regular Rate, Rhythm, No Murmur Assessment/Plan Assessment/Plan Assess & Plan/Chief Complaint Right hip problem. To be evaluated by orthopedic. . 09/07/17. Right hip problem. To have bone scan today. Waiting for results. . 09/09/17. Right hip problem. Bone scan does not show looseness some prosthesis. Patient to have MRI.. Patient states bronchitis is improving. . 09/11/17. Right hip problem. Fractures. MRI positive. No complaints about bronchitis. . 09/12/17. Sacral fractures. Breathing good. Clinical Quality Measures Admission Status Admission Dx Orthopedic problem. Pain in the right hip. Bronchitis last week. Sinusitis. Loose exam with femur DVT/VTE Risk/Contraindication: Risk Factor Score Per Nursin RFS Level Per Nursing on Admit: 2=Moderate MAG LI DO Sep 12, 2017 08:07
[2017-09-12] MEDS: ASCORBIC ACID (VIT C) 500 MG TABLET PO SCH ×3 (08:09→19:18)
[2017-09-12] MEDS: VITAMIN D3 400 UNITS (CHOLECALCIFEROL) TABLET PO SCH ×4 (08:10→17:10)
[2017-09-12] MEDS: RT-ALBUTEROL SULF 2.5 MG/3 ML PRE-MIX VIAL INH SCH ×3 (10:31→19:41)
--- NOTE | 2017-09-12 10:34 | PM & R (SOAP) Progress Note ---
Subjective This was a face to face visit with the patient. Date Seen by Provider: Sep 12, 2017 Time Seen by Provider: 08:10 Subjective/Events-last exam Patient was seen in her room this AM Patient states that she will be going to [facility] from here and will make an outpatient appointment to see a local Orthopedist.regarding her ongoing rt hip pain.Patient aware of MRI results revealing bilateral sacral alar fractures.Patient SBA to [facility] for mobility for transfers and short distance ambulation with walker with limited WB RLE. Review of Systems Musculoskeletal: leg pain Objective Physician Exam Last Set of Vital Signs Vital Signs Date Time Temp Pulse Resp B/P (MAP) Pulse Ox O2 Delivery O2 Flow Rate FiO2 09/12/17 09:00 Room Air 09/12/17 05:04 96.9 75 18 132/68 (89) 92 Capillary Refill : I&O Intake and Output 09/12/17 00:00 Intake Total 1050 ml Balance 1050 ml Intake Oral 1050 ml # Voids 8 # Bowel Movements 1 General: Alert, Oriented X3, Cooperative, No Acute Distress, Other (The patient is seen in her room this evening.Appreciate Therapy and DR Llanes notes) HEENT: Atraumatic, PERRLA, EOMI, Mucous Memb Moist/[place] Neck: Supple, No JVD Lungs: Clear to Auscultation Heart: Regular Rate Abdomen: Normal Bowel Sounds, No Tenderness Extremities: No Clubbing, No Cyanosis, No Edema Neuro: Other (Mild weakness at Rt hip with some guarding) Psych/Mental Status: Mental Status NL, Mood NL, Other (Patient is SBA for transfers) Assessment/Plan Assessment and Plan Rt hip pain with bilateral sacral alar fractures OA s/p RT THR 2011 Hx of HTN currently normotensive Plan Continue PT/OT Team Conference later today see report for full functional update and POC and ELOS Discussed case with ortho yesterday by Phone -They suggested an outpatient appointmernt with ortho in [facility] if pain doesnt resolve Pain management. 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
--- NOTE | 2017-09-12 10:52 | Occupational Ther Daily Note ---
OT Current Status-Daily Note Subjective Pt seen in room, up in bed. agreeable to OT. Does not want to shower today. Pt reported pain in R leg when she lifts it and leans back to pull socks and pants on. Appearance Alert, cooperative Mental Status/Objective Functional [place] Measure 0=Not Assessed/NA 4=Minimal Assistance 1=Total Assistance 5=Supervision or Setup 2=Maximal Assistance 6=Modified [place] 3=Moderate Assistance 7=Complete [place] ADL-Treatment Pt reported that she believes she needs to be walking without a walker in order to go home. She said that it is just to exhausting to use for cooking three meals a day and she depends on good nutrition. She was able to get up out of bed without help and walked with SBA to closet to retrieve clean clothes and put dirty ones away. No LOB observed during any walking or standing and pt appeared to maintain WBS throughout activities. She also walked to and from sink and stood at sink safely (also sat to do ADLs). She washed a few tee areas with bath pack but did not take a complete bath or shower. Pt left up at EOB with all needs met. Functional [place] Measure 0=Not Assessed/NA 4=Minimal Assistance 1=Total Assistance 5=Supervision or Setup 2=Maximal Assistance 6=Modified [place] 3=Moderate Assistance 7=Complete IndependenceIRFPAI Quality Coding Scale 6 Independent with activity with or without an assistive device 5 Patient requires set up or clean up by helper. Patient completes activity by themselves 4 Supervision or touching assist (CGA). [place] provide cues , steadying assist 3 The helper provides less than half the effort to complete the activity 2 The helper provides more than half the effort to complete the activity 1 Dependent. The helper does all the effort to complete an activity 7 Patient refused to complete or attempt activity 9 The patient did not perform the activity before the current illness or injury 88 Not attempted due to Medical conditions or safety concerns Grooming (FIM): 6 (Mod I, sitting or standing with FWW for balance as needed. Able to brush teeth and hair, wash face and hands) Upper Body (FIM): 6 (Retrieved clean clothes from closet and put dirty ones away. Doffed and donned clothing without help) Lower Body Dressing (FIM): 5 (Pt educ use of dressing stick for donning slacks. Pt tried hard sock aid to see if it would not pull her socks so tight at the toe and it did not seem to make a difference. She thought she had increased R leg discomfort wieh using this one compaired to sock sock aid. Able to slip feet into sandals, fasten L one and pull heel strap up on R one.) Education OT Patient Education: Modified ADL techniques, Purpose of tx/functional activities, Use of adapted equipment Teaching Recipient: Patient Teaching Methods: Demonstration, Discussion Response to Teaching: Verbalize Understanding, Return Demonstration, Reinforcement Needed OT Short Term Goals Short Term Goals Time Frame: Sep 12, 2017 Transfers (B,C,W/C) (FIM): 6 Toilet/Commode Transfer(FIM): 5 Additional Short Term Goals: 1-Demonstrate ADL Tasks, 2-Verbalize Understanding , 3-ImproveStrength/Félix 1=Demonstrate adherence to instructed precautions during ADL tasks. 2=Patient will verbalize/demonstrate understanding of assistive devices/ modifications for ADL. 3=Patient will improve strength/tolerance for activity to enable patient to perform ADL's. OT Detention Goals Detention Goals Time Frame: Sep 19, 2017 Eating (FIM): 7 Eating (QC): 6 Groomin Oral Hygiene (QC): 6 Bathing(FIM): 6 Shower/Bathe Self (QC): 6 Upper Body Dressing(FIM): 6 Upper Body Dressing (QC): 6 Lower Body Dressing(FIM): 6 Lower Body Dressing (QC): 6 On/Off Footwear (QC): 6 Toileting(FIM): 6 Toileting Hygiene (QC): 6 Toilet/Commode Transfer(FIM): 6 Toilet/Commode Transfer (QC): 6 Shower Transfer(FIM): 6 Additional Goals: 1-Demonstrate ADL Tasks, 2-Verbalize Understanding, 3- ImproveStrength/Félix 1=Demonstrate adherence to instructed precautions during ADL tasks. 2=Patient will verbalize/demonstrate understanding of assistive devices/ modifications for ADL. 3=Patient will improve strength/tolerance for activity to enable patient to perform ADL's. OT Education/Plan Problem List/Assessment Pt would benefit from skilled OT to increase her independence in basic self care to allow her to safely return home Discharge Recommendations Plan/Recommendations: Continue POC Treatment Plan/Plan of Care Patient would benefit from OT for education, treatment and training to promote independence in ADL's, mobility, safety and/or upper extremity function for ADL' s. Plan of Care: ADL Retraining, Functional Mobility, Group Exercise/Act as Ind ( education, exercise, functional activities, socialization), UE Funct Exercise/ Act, UE Neuromus Re-Ed/Coord Treatment Duration: Sep 19, 2017 Frequency: At least 5 of 7 days/Wk (IRF) Estimated Hrs Per Day: 1.5 hours per day Agreement: Yes Rehab Potential: Good Time/GCodes Start Time: 08:30 Stop Time: 09:40 Total Time Billed (hr/min): 70 Billed Treatment Time visit, 70 minutes ADL EUNICE DONNELLY OT Sep 12, 2017 10:52
[2017-09-12] MEDS: MULTIVIT W/MINERALS TAB (THERAGRAN M) PO SCH (12:02)
--- NOTE | 2017-09-12 12:26 | Physical Therapy Daily Note ---
PT Daily Note-Current Subjective Pt in restroom for BM upon arrival. Pt reports Nurse needed sample. Pt agrees to PT. Pain Numeric Pain Scale: 3 Location: Right, Left Location Body Site: Thigh Pain Description: Ache Mental Status Patient Orientation: Person, Place, Situation Transfers Functional [place] Measure 0=Not Assessed/NA 4=Minimal Assistance 1=Total Assistance 5=Supervision or Setup 2=Maximal Assistance 6=Modified [place] 3=Moderate Assistance 7=Complete IndependenceIRFPAI Quality Coding Scale 6 Independent with activity with or without an assistive device 5 Patient requires set up or clean up by helper. Patient completes activity by themselves 4 Supervision or touching assist (CGA). [place] provide cues , steadying assist 3 The helper provides less than half the effort to complete the activity 2 The helper provides more than half the effort to complete the activity 1 Dependent. The helper does all the effort to complete an activity 7 Patient refused to complete or attempt activity 9 The patient did not perform the activity before the current illness or injury 88 Not attempted due to Medical conditions or safety concerns Scootin Rollin Roll Left to Right (QC): 6 Supine to/from Sit: 6 Sit to/from Stand: 6 Sit to Lying (QC): 6 Sit to Stand (QC): 6 Weight Bearing Right Lower Extremity: Right Touch Toe Bearing Left Lower Extremity: Left Full Weight Bearing Per physician office in [place] (Dr. Kim) "limit WB on the right LE" Gait Training Does the Patient Walk?: Yes Distance (FIM): 3=150 ft Distance: 150' Walk 10 feet (QC): 5 Walk 50 ft with 2 Turns(QC): 5 Walk 150 ft (QC): 5 Gait Level of Assist: 5 Gait Assistive Device: FWW Pt's booker is very slow and pt fatigues easily. Pt needs frequent rest breaks but pt also self limits and does not push herself. Wheelchair Training Does the Pt Use a Wheelchair?: Yes Wheelchair Distance: 6=559-22 ft Distance: 75' Wheelchair Level of Assist: 5 Wheel 50 ft with 2 turns (QC): 5 Type of Wheelchair: Manual Exercises Seated Therapy Exercises: Ankle pumps, Long arc quads, Hip flexion, Kicking activity Seated Reps: 15 Treatments Pt finishing using restroom before leaving for tx. Pt transfers from toilet and ambulates in hallway using FWW at [facility] for safety. Pt takes frequent rest breaks (approx. every 50') and rest breaks are extended. Pt completes Seated Ex in chair in Therapy Gym. After resting, pt transfers to standing and ambulates in hallway on way back to room. Pt resting Supine in bed at end of tx with all needs met, including call light in hand. Assessment Current Status: Fair Progress Pt's strength has improved as well as transfers but ambulation is limited by pt due to discomfort in B thighs and B wrists. Pt fatigues quickly and self limits. PT Short Term Goals Short Term Goals Time Frame: Sep 12, 2017 Transfers (B,C,W/C) (FIM): 6 Gait (FIM): 4 Gait Assistive Device: FWW PT Retirement Goals Grid [place]older Goals PT Retirement Goals Time Frame: Sep 20, 2017 Transfers (B,C,W/C) (FIM): 7 Sit to Lying (QC): 6 Lying-Sitting on Side/Bed(QC): 6 Sit to Stand (QC): 6 Rollin Roll Left to Right (QC): 6 Chair/[id number] Xfer(QC): 6 Car Transfer (QC): 6 Does the Patient Walk: Yes Gait (FIM): 5 (household exception) Gait distance (FIM): 5=707-00 ft Distance: 50 ft Walk 10 feet (QC): 6 Walk 10ft-Uneven Surface(QC): 6 Walk 50ft with 2 Turns (QC): 6 Walk 150 ft (QC): 9 (too far for her to hop) Gait Assistive Device: FWW Does the Pt use WC or Scooter?: No Stairs (FIM): 5 (household exception) # of Steps: 4 1 Step (curb) (QC): 6 4 Steps (QC): 6 12 Steps (QC): 88 Picking up an Object (QC): 4 PT Plan Problem List Problem List: Activity Tolerance, Functional Strength, Safety, Gait Treatment/Plan Treatment Plan: Continue Plan of Care Treatment Plan: Bed Mobility, Education, Functional Activity Félix, Functional Strength, Group Therapy, Gait, Safety, Therapeutic Exercise, Transfers Treatment Duration: Sep 20, 2017 Frequency: At least 5 of 7 days/Wk (IRF) Estimated Hrs Per Day: 1.5 hours per day Patient and/or Family Agrees t: Yes Safety Risks/Education Patient Education: Gait Training, Transfer Techniques, Correct Positioning, Safety Issues Teaching Recipient: Patient Teaching Methods: Discussion Response to Teaching: Verbalize Understanding Time/GCodes Time In: 1000 Time Out: 1100 Total Billed Treatment Time: 60 Total Billed Treatment 1, GT x2 (30m), FA (10m) & EX (20m) G Codes Necessary: LUCRECIA Edmondson MANAGER GAME Sep 12, 2017 12:26
--- NOTE | 2017-09-12 15:01 | Therapy Group Daily Note ---
Therapy Daily Group Note Patient Education Topic Other List Below (memory, ARU description/expection) Exercises LE Seated Exercise, UE Exercise Other/Notes Pt ambulated 1/4 way then requested w/c and was transported to OT/PT group in therapy gym. Group consisted of introductions (name, place living, riddle), socialization, ARU description/expectations, memory activity, memory strategies and visual perceptual activity. Pt introduced self appropriately then actively listening to peers. Pt verbalized understanding of ARU expectations. Pt contributed to discussions and conversations with peers. Pt was able to complete memory activity without difficulty. Pt gave examples of personal ways used for memory strategies. Pt maneuvered w/c 1/4 way back to room then stated that her arms were to tired to go any further. Pt transported back to room and transferred to bed. Pt was given call light and phone. All needs met. Start Time: 13:00 Stop Time: 14:20 Total Billed Treatment Time: 80 Total Billed Treatment 1-GRP RACHEL SANABRIA Sep 12, 2017 15:01
[2017-09-12] MEDS: LIDOCAINE (LIDODERM) 5% PATCH TOP SCH (17:14)
[2017-09-12 18:00] VITALS: BP 133/66
[2017-09-12] MEDS: LIDODERM PATCH REMOVAL TP SCH (19:18)
[2017-09-13 05:57] VITALS: BP 144/68
[2017-09-13] MEDS: RT-ALBUTEROL SULF 2.5 MG/3 ML PRE-MIX VIAL INH SCH ×3 (07:34→19:03)
--- NOTE | 2017-09-13 07:58 | Progress Note (SOAP) ---
Subjective Time Seen by Provider: 07:50 Subjective/Events-last exam Patient to be discharged tomorrow. Sacral fractures. Patient worried about how she'll get along Objective Exam Vital Signs Date Time Temp Pulse Resp B/P (MAP) Pulse Ox O2 Delivery O2 Flow Rate FiO2 09/13/17 07:35 97 Room Air 09/13/17 05:57 97.0 71 18 144/68 (93) 95 Room Air 09/12/17 20:00 Room Air 09/12/17 19:41 97 Room Air 09/12/17 18:00 97.2 78 18 133/66 (88) 96 Room Air 09/12/17 14:43 97 Room Air 09/12/17 09:00 Room Air I & O 09/13/17 07:00 Intake Total 1050 ml Balance 1050 ml Capillary Refill : General Appearance: No Apparent Distress, WD/WN HEENT: Normal ENT Inspection Neck: Normal Inspection Respiratory: No Accessory Muscle Use, No Respiratory Distress Results Lab Laboratory Tests 09/12/17 10:05: Stool Occult Blood Immunoassay NEGATIVE Assessment/Plan Assessment/Plan Assess & Plan/Chief Complaint Right hip problem. To be evaluated by orthopedic. . 09/07/17. Right hip problem. To have bone scan today. Waiting for results. . 09/09/17. Right hip problem. Bone scan does not show looseness some prosthesis. Patient to have MRI.. Patient states bronchitis is improving. . 09/11/17. Right hip problem. Fractures. MRI positive. No complaints about bronchitis. . 09/12/17. Sacral fractures. Breathing good. . 09/13/17. Right hip problems. Sacral fractures. no problems with bronchitis. Patient be discharged within the next few days. Patient worried Clinical Quality Measures Admission Status Admission Dx Orthopedic problem. Pain in the right hip. Bronchitis last week. Sinusitis. Loose exam with femur DVT/VTE Risk/Contraindication: Risk Factor Score Per Nursin RFS Level Per Nursing on Admit: 2=Moderate MAG LI DO Sep 13, 2017 07:57
[2017-09-13] MEDS: LIDOCAINE (LIDODERM) 5% PATCH TOP SCH (08:12)
[2017-09-13] MEDS: ASCORBIC ACID (VIT C) 500 MG TABLET PO SCH ×2 (08:12→19:48)
[2017-09-13] MEDS: VITAMIN D3 400 UNITS (CHOLECALCIFEROL) TABLET PO SCH ×3 (08:13→18:06)
--- NOTE | 2017-09-13 10:10 | PM & R (SOAP) Progress Note ---
Subjective This was a face to face visit with the patient. Date Seen by Provider: Sep 13, 2017 Time Seen by Provider: 08:10 Subjective/Events-last exam Patient was seen in her room this AM Patient Modified Independent for transfers .Informed patient that i spoke with DR Elkins office yesterday and he was in Surgery Awaiting his callback from his office today Patient concerned re returning home alone I suggested INTERMEDIATE or home with his brother if patient too high level for SNU.Discussed pain management with Patient Patient willing to try Lidoderm patch for pain control.I would think that WBAT should be OK for RLE but patient concerned re reinjury I tried to reassure. Review of Systems Musculoskeletal: leg pain Objective Physician Exam Last Set of Vital Signs Vital Signs Date Time Temp Pulse Resp B/P (MAP) Pulse Ox O2 Delivery O2 Flow Rate FiO2 09/13/17 07:35 97 Room Air 09/13/17 05:57 97.0 71 18 144/68 (93) Capillary Refill : I&O Intake and Output 09/13/17 00:00 Intake Total 900 ml Balance 900 ml Intake Oral 900 ml # Voids 8 # Bowel Movements 1 General: Alert, Oriented X3, Cooperative, No Acute Distress, Other (The patient is seen in her room this evening.Appreciate Therapy and DR Llanes notes) HEENT: Atraumatic, PERRLA, EOMI, Mucous Memb Moist/[place] Neck: Supple, No JVD Lungs: Clear to Auscultation Heart: Regular Rate Abdomen: Normal Bowel Sounds, No Tenderness Extremities: No Clubbing, No Cyanosis, No Edema Neuro: Other (Mild weakness at Rt hip with some guarding) Psych/Mental Status: Mental Status NL, Mood NL, Other (Patient is SBA for transfers) Results Lab Data Laboratory Tests 09/12/17 10:05: Stool Occult Blood Immunoassay NEGATIVE Assessment/Plan Assessment and Plan Rt Hip pain with bilateral sacral alar fractures OA s/p RT THR 2011 Pain management with hx of multiple allergies/intolerances to meds-Patient states willing to try Lidoderm patch Plan Continue Pt/OT/Pain management F/U with SW re discharge options Patient should be able to go home with HHC or family to help Patient may be too high level for SNU placement Will f/u with SW Patient may have f/u with Ortho on an outpatient basis (1) Loosening of prosthetic hip Status: Acute Co-Morbidities that are continuing to impact the rehab process: (include details ) TERRI BOSS MD Sep 13, 2017 10:10
[2017-09-13] MEDS ORDERED: Lidocaine TOP (10:45)
--- NOTE | 2017-09-13 10:46 | Occupational Ther Daily Note ---
OT Current Status-Daily Note Subjective Pt seen in room, up in bed, agreeable to OT. Pt reported R leg pain when she extends R leg to put on stockings. Appearance Alert, cooperative Mental Status/Objective Functional [place] Measure 0=Not Assessed/NA 4=Minimal Assistance 1=Total Assistance 5=Supervision or Setup 2=Maximal Assistance 6=Modified [place] 3=Moderate Assistance 7=Complete [place] ADL-Treatment Pt was able to up from EOB without assistance and walk to bathroom with FWW, maintaining WB status. Toileted, showered, returned to bed to dress, then walked to chair at sink to complete grooming. Pt left up in chair at sink, all needs met. Functional [place] Measure 0=Not Assessed/NA 4=Minimal Assistance 1=Total Assistance 5=Supervision or Setup 2=Maximal Assistance 6=Modified [place] 3=Moderate Assistance 7=Complete IndependenceIRFPAI Quality Coding Scale 6 Independent with activity with or without an assistive device 5 Patient requires set up or clean up by helper. Patient completes activity by themselves 4 Supervision or touching assist (CGA). [place] provide cues , steadying assist 3 The helper provides less than half the effort to complete the activity 2 The helper provides more than half the effort to complete the activity 1 Dependent. The helper does all the effort to complete an activity 7 Patient refused to complete or attempt activity 9 The patient did not perform the activity before the current illness or injury 88 Not attempted due to Medical conditions or safety concerns Eating (FIM): 7 (Able to open packages, cut up food, feed herself. No dentures) Eating (QC): 6 Grooming (FIM): 6 (At sink, able to sit and stand to brush teeth, comb hair. Washed face and hands in shower. Balances on countertop or with FWW. ) Oral Hygiene (QC): 6 Bathing (FIM): 5 (Setup to turn water on. Retrieved towel from bar. Washed and dried all parts, using shower bench, grab bars, hand held shower, long handled sponge) Shower/Bathe Self (QC): 5 (setup) Upper Body (FIM): 6 (retrieved clean clothes from closet, using FWW for balance. ABle to doff and don bra and shirt without help) Upper Body Dressing (QC): 6 Lower Body Dressing (FIM): 5 (Retrieved clean clothes from closet, using FWW for balance. Skilled cues for using dressing stick to don depends and slacks, using sock aid (able to adjsut sock so that it is not too tight on her toes). Supervision) Lower Body Dressing (QC): 4 (Supervision) On/Off Footwear (QC): 4 (Supervision) Toileting (FIM): 6 (Mod I for clothing management and hygiene, with BSC over toilet, grab bar, FWW) Toileting Hygiene (QC): 6 Toilet/Commode Transfer (FIM): 6 (Mod I on and off BSC over toilet, grab bars, FWW) Toilet Transfer (QC): 6 Shower Transfer(FIM): 5 (SBA getting in and out of shower, on and off shower bench.) Education OT Patient Education: Modified ADL techniques, Progress toward Goal/Update tx plan, Purpose of tx/functional activities, Use of adapted equipment Teaching Recipient: Patient Teaching Methods: Demonstration, Discussion Response to Teaching: Verbalize Understanding, Return Demonstration, Reinforcement Needed OT Short Term Goals Short Term Goals Time Frame: Sep 12, 2017 Transfers (B,C,W/C) (FIM): 6 Toilet/Commode Transfer(FIM): 5 Additional Short Term Goals: 1-Demonstrate ADL Tasks, 2-Verbalize Understanding , 3-ImproveStrength/Félix 1=Demonstrate adherence to instructed precautions during ADL tasks. 2=Patient will verbalize/demonstrate understanding of assistive devices/ modifications for ADL. 3=Patient will improve strength/tolerance for activity to enable patient to perform ADL's. OT Custodial Goals Custodial Goals Time Frame: Sep 19, 2017 Eating (FIM): 7 Eating (QC): 6 Groomin Oral Hygiene (QC): 6 Bathing(FIM): 6 Shower/Bathe Self (QC): 6 Upper Body Dressing(FIM): 6 Upper Body Dressing (QC): 6 Lower Body Dressing(FIM): 6 Lower Body Dressing (QC): 6 On/Off Footwear (QC): 6 Toileting(FIM): 6 Toileting Hygiene (QC): 6 Toilet/Commode Transfer(FIM): 6 Toilet/Commode Transfer (QC): 6 Shower Transfer(FIM): 6 Additional Goals: 1-Demonstrate ADL Tasks, 2-Verbalize Understanding, 3- ImproveStrength/Félix 1=Demonstrate adherence to instructed precautions during ADL tasks. 2=Patient will verbalize/demonstrate understanding of assistive devices/ modifications for ADL. 3=Patient will improve strength/tolerance for activity to enable patient to perform ADL's. OT Education/Plan Problem List/Assessment Pt would benefit from skilled OT to increase her independence in basic self care to allow her to safely return home Discharge Recommendations Plan/Recommendations: Continue POC Treatment Plan/Plan of Care Patient would benefit from OT for education, treatment and training to promote independence in ADL's, mobility, safety and/or upper extremity function for ADL' s. Plan of Care: ADL Retraining, Functional Mobility, Group Exercise/Act as Ind ( education, exercise, functional activities, socialization), UE Funct Exercise/ Act, UE Neuromus Re-Ed/Coord Treatment Duration: Sep 19, 2017 Frequency: At least 5 of 7 days/Wk (IRF) Estimated Hrs Per Day: 1.5 hours per day Agreement: Yes Rehab Potential: Good Time/GCodes Start Time: 08:30 Stop Time: 09:35 Total Time Billed (hr/min): 65 Billed Treatment Time visit, 65 minutes ADL EUNICE DONNELLY OT Sep 13, 2017 10:46
[2017-09-13] MEDS: MULTIVIT W/MINERALS TAB (THERAGRAN M) PO SCH (11:18)
--- NOTE | 2017-09-13 12:05 | Physical Therapy Daily Note ---
PT Daily Note-Current Subjective Pt laying Supine in bed upon arrival. Pt agrees to PT for FIM scoring for tomorrow's discharge. Pain Numeric Pain Scale: 5-Moderate Pain Location: Right, Left Location Body Site: Hip Pain Description: Ache Mental Status Patient Orientation: Person, Place, Situation Transfers Functional [place] Measure 0=Not Assessed/NA 4=Minimal Assistance 1=Total Assistance 5=Supervision or Setup 2=Maximal Assistance 6=Modified [place] 3=Moderate Assistance 7=Complete IndependenceIRFPAI Quality Coding Scale 6 Independent with activity with or without an assistive device 5 Patient requires set up or clean up by helper. Patient completes activity by themselves 4 Supervision or touching assist (CGA). [place] provide cues , steadying assist 3 The helper provides less than half the effort to complete the activity 2 The helper provides more than half the effort to complete the activity 1 Dependent. The helper does all the effort to complete an activity 7 Patient refused to complete or attempt activity 9 The patient did not perform the activity before the current illness or injury 88 Not attempted due to Medical conditions or safety concerns Transfers (B, C, W/C) (FIM): 6 Scootin Rollin Roll Left to Right (QC): 6 Supine to/from Sit: 6 Sit to/from Stand: 6 Sit to Lying (QC): 6 Sit to Stand (QC): 6 Chair/Tnw-hx-Guyhn Xfer(QC): 6 Bed to/from Chair: 6 Car Transfer (QC): 5 Weight Bearing Right Lower Extremity: Right Touch Toe Bearing Left Lower Extremity: Left Full Weight Bearing Per physician office in [place] (Dr. Kim) "limit WB on the right LE" Gait Training Does the Patient Walk?: Yes Distance (FIM): 3=150 ft Distance: 150' (resting every approx. 50') Walk 10 feet (QC): 5 Walk 50 ft with 2 Turns(QC): 5 Walk 150 ft (QC): 5 Walking 10ft/uneven surface-QC: 5 Gait Level of Assist: 5 Gait Persons Needed: 1 Gait Assistive Device: FWW Pt has a very booker to keep WB status. Pt reports increased fatigue in UE due to preventing WB through LE. Wheelchair Training Does the Pt Use a Wheelchair?: No Stair Training Stairs (FIM): 88 This is an unsafe item due to WB status to test so was not attempted. Balance Picking up an Object (QC): 88 Special Test Comments This is unsafe item due to WB status and balance so was not attempted. Treatments Pt completes Bed mobility and transfers at [facility]. Pt ambulates [facility] using FWW at [facility] for balance. Pt completes car transfer & walking over varying surface at [facility] and receives several VC during completion. Pt ambulates back to room to use restroom. After finishing, pt returns to EOB at end of tx with all needs met & ordering lunch. Assessment Current Status: Fair Progress Pt has improved with transfers and independence of tasks but continues to struggle with fatigue during ambulation due to WB status. PT Short Term Goals Short Term Goals Time Frame: Sep 12, 2017 Transfers (B,C,W/C) (FIM): 6 Gait (FIM): 4 Gait Assistive Device: FWW Wheelchair Distance: 75' PT Design Sales Consultant Goals [facility]pc Goals PT Design Sales Consultant Goals Time Frame: Sep 20, 2017 Transfers (B,C,W/C) (FIM): 7 Sit to Lying (QC): 6 Lying-Sitting on Side/Bed(QC): 6 Sit to Stand (QC): 6 Rollin Roll Left to Right (QC): 6 Chair/Upg-ld-Fekdf Xfer(QC): 6 Car Transfer (QC): 6 Does the Patient Walk: Yes Gait (FIM): 5 (household exception) Gait distance (FIM): 5=977-02 ft Distance: 50 ft Walk 10 feet (QC): 6 Walk 10ft-Uneven Surface(QC): 6 Walk 50ft with 2 Turns (QC): 6 Walk 150 ft (QC): 9 (too far for her to hop) Gait Assistive Device: FWW Does the Pt use WC or Scooter?: No Stairs (FIM): 5 (household exception) # of Steps: 4 1 Step (curb) (QC): 6 4 Steps (QC): 6 12 Steps (QC): 88 Picking up an Object (QC): 4 PT Plan Problem List Problem List: Activity Tolerance, Functional Strength, Safety, Balance, Gait Treatment/Plan Treatment Plan: Continue Plan of Care Treatment Plan: Bed Mobility, Education, Functional Activity Félix, Functional Strength, Group Therapy, Gait, Safety, Therapeutic Exercise, Transfers Treatment Duration: Sep 20, 2017 Frequency: At least 5 of 7 days/Wk (IRF) Estimated Hrs Per Day: 1.5 hours per day Patient and/or Family Agrees t: Yes Safety Risks/Education Patient Education: Gait Training, Transfer Techniques, Correct Positioning, Safety Issues Teaching Recipient: Patient Teaching Methods: Discussion Response to Teaching: Verbalize Understanding Time/GCodes Time In: 1100 Time Out: 1200 Total Billed Treatment Time: 60 Total Billed Treatment 1, GT x2 (30m) & FA x2 (30m) G Codes Necessary: LUCRECIA Edmondson PTA Sep 13, 2017 12:05
--- NOTE | 2017-09-13 14:24 | Occupational Ther Daily Note ---
OT Current Status-Daily Note Subjective Pt seen in room, up at EOB, finishing lunch. Agreeable to OT. Appearance Alert, cooperative Mental Status/Objective Functional [place] Measure 0=Not Assessed/NA 4=Minimal Assistance 1=Total Assistance 5=Supervision or Setup 2=Maximal Assistance 6=Modified [place] 3=Moderate Assistance 7=Complete [place] ADL-Treatment Functional [place] Measure 0=Not Assessed/NA 4=Minimal Assistance 1=Total Assistance 5=Supervision or Setup 2=Maximal Assistance 6=Modified [place] 3=Moderate Assistance 7=Complete IndependenceIRFPAI Quality Coding Scale 6 Independent with activity with or without an assistive device 5 Patient requires set up or clean up by helper. Patient completes activity by themselves 4 Supervision or touching assist (CGA). [place] provide cues , steadying assist 3 The helper provides less than half the effort to complete the activity 2 The helper provides more than half the effort to complete the activity 1 Dependent. The helper does all the effort to complete an activity 7 Patient refused to complete or attempt activity 9 The patient did not perform the activity before the current illness or injury 88 Not attempted due to Medical conditions or safety concerns Other Treatment Pt got up from EOB without help and walked to [facility] area, using FWW. She stopped for a brief recovery break for her arms about prison. She was able to sit down in chair with arms and get back up safely. She worked with graded clothes pins with 1# weight on each arm but reported she "really felt it" in her shoulders and weight was taken off L arm before completion of activity. She also worked with resistive pegs and took a couple brief recovery breaks during activity due to arm fatigue. Pt walked back to her room and was able to gt into bed without help. Pt left up in bed, all needs met. Pt educ to request arms for toilet at [facility] to help with getting up and down. Education OT Patient Education: Progress toward Goal/Update tx plan, Use of adapted equipment Teaching Recipient: Patient Teaching Methods: Discussion Response to Teaching: Verbalize Understanding OT Short Term Goals Short Term Goals Time Frame: Sep 12, 2017 Transfers (B,C,W/C) (FIM): 6 Toilet/Commode Transfer(FIM): 5 Additional Short Term Goals: 1-Demonstrate ADL Tasks, 2-Verbalize Understanding , 3-ImproveStrength/Félix 1=Demonstrate adherence to instructed precautions during ADL tasks. 2=Patient will verbalize/demonstrate understanding of assistive devices/ modifications for ADL. 3=Patient will improve strength/tolerance for activity to enable patient to perform ADL's. OT Automobile Rental Clerk Goals Half-Way Goals Time Frame: Sep 19, 2017 Eating (FIM): 7 (met 6-7-18) Eating (QC): 6 (met 6-7-18) Groomin (met 6-7-18) Oral Hygiene (QC): 6 (met 6-7-18) Bathing(FIM): 6 (not met 6-7-18) Shower/Bathe Self (QC): 6 (not met 6-7-18) Upper Body Dressing(FIM): 6 (met 6--18) Upper Body Dressing (QC): 6 (met 6--18) Lower Body Dressing(FIM): 6 (not met 6-7-18) Lower Body Dressing (QC): 6 (not met 6-7-18) On/Off Footwear (QC): 6 (not met 6--18) Toileting(FIM): 6 (met 6--18) Toileting Hygiene (QC): 6 (met 6-7-18) Toilet/Commode Transfer(FIM): 6 (met 6--18) Toilet/Commode Transfer (QC): 6 (met 6-7-18) Shower Transfer(FIM): 6 (not met 6-7-18) Additional Goals: 1-Demonstrate ADL Tasks, 2-Verbalize Understanding, 3- ImproveStrength/Félix 1=Demonstrate adherence to instructed precautions during ADL tasks. 2=Patient will verbalize/demonstrate understanding of assistive devices/ modifications for ADL. 3=Patient will improve strength/tolerance for activity to enable patient to perform ADL's. OT Education/Plan Problem List/Assessment Pt would benefit from skilled OT to increase her independence in basic self care to allow her to safely return home Discharge Recommendations Plan/Recommendations: Continue POC Treatment Plan/Plan of Care Patient would benefit from OT for education, treatment and training to promote independence in ADL's, mobility, safety and/or upper extremity function for ADL' s. Plan of Care: ADL Retraining, Functional Mobility, Group Exercise/Act as Ind ( education, exercise, functional activities, socialization), UE Funct Exercise/ Act, UE Neuromus Re-Ed/Coord Treatment Duration: Sep 19, 2017 Frequency: At least 5 of 7 days/Wk (IRF) Estimated Hrs Per Day: 1.5 hours per day Agreement: Yes Rehab Potential: Good Time/GCodes Start Time: 13:00 Stop Time: 13:30 Total Time Billed (hr/min): 30 Billed Treatment Time visit, 30 minutes exercise EUNICE DONNELLY OT Sep 13, 2017 14:24
--- NOTE | 2017-09-13 15:55 | Physical Therapy Daily Note ---
PT Daily Note-Current Subjective Pt laying Supine in bed upon arrival. RT arrives at beginning of tx. Pt agrees to PT. Mental Status Patient Orientation: Person, Place, Time Transfers Functional [place] Measure 0=Not Assessed/NA 4=Minimal Assistance 1=Total Assistance 5=Supervision or Setup 2=Maximal Assistance 6=Modified [place] 3=Moderate Assistance 7=Complete IndependenceIRFPAI Quality Coding Scale 6 Independent with activity with or without an assistive device 5 Patient requires set up or clean up by helper. Patient completes activity by themselves 4 Supervision or touching assist (CGA). [place] provide cues , steadying assist 3 The helper provides less than half the effort to complete the activity 2 The helper provides more than half the effort to complete the activity 1 Dependent. The helper does all the effort to complete an activity 7 Patient refused to complete or attempt activity 9 The patient did not perform the activity before the current illness or injury 88 Not attempted due to Medical conditions or safety concerns Weight Bearing Right Lower Extremity: Right Touch Toe Bearing Left Lower Extremity: Left Full Weight Bearing Per physician office in [place] (Dr. Kim) "limit WB on the right LE" Treatments Pt wants to discuss process for discharge for tomorrow with SENIOR STAFF ACCOUNTANT. Discussion included what will happen after discharge & arriving at [facility], will pt be able to drive & how soon, obtaining a second opinion for Ortho. [place], what Ex should be continued, will PT & Ot be in for Therapy tomorrow & who will assist pt to get ready. Pt & SENIOR STAFF ACCOUNTANT discussed these answers or who pt needs to visit with for the answers. Pt is resting at end of tx with all needs met, including call light in hand. Assessment Pt gets very anxious with changes and preoccupied during tx. PT Short Term Goals Short Term Goals Time Frame: Sep 12, 2017 Transfers (B,C,W/C) (FIM): 6 Gait (FIM): 4 Gait Assistive Device: FWW Wheelchair Distance: 75' PT Retail Marketing Specialist Goals [facility] Goals PT Retail Marketing Specialist Goals Time Frame: Sep 20, 2017 Transfers (B,C,W/C) (FIM): 7 Sit to Lying (QC): 6 Lying-Sitting on Side/Bed(QC): 6 Sit to Stand (QC): 6 Rollin Roll Left to Right (QC): 6 Chair/Hxo-il-Xjfvm Xfer(QC): 6 Car Transfer (QC): 6 Does the Patient Walk: Yes Gait (FIM): 5 (household exception) Gait distance (FIM): 4=841-92 ft Distance: 50 ft Walk 10 feet (QC): 6 Walk 10ft-Uneven Surface(QC): 6 Walk 50ft with 2 Turns (QC): 6 Walk 150 ft (QC): 9 (too far for her to hop) Gait Assistive Device: FWW Does the Pt use WC or Scooter?: No Stairs (FIM): 5 (household exception) # of Steps: 4 1 Step (curb) (QC): 6 4 Steps (QC): 6 12 Steps (QC): 88 Picking up an Object (QC): 4 PT Plan Problem List Problem List: Activity Tolerance, Functional Strength, Safety, Balance, Gait Treatment/Plan Treatment Plan: Continue Plan of Care Treatment Plan: Bed Mobility, Education, Functional Activity Félix, Functional Strength, Group Therapy, Gait, Safety, Therapeutic Exercise, Transfers Treatment Duration: Sep 20, 2017 Frequency: At least 5 of 7 days/Wk (IRF) Estimated Hrs Per Day: 1.5 hours per day Patient and/or Family Agrees t: Yes Safety Risks/Education Patient Education: Correct Positioning, Safety Issues Teaching Recipient: Patient Teaching Methods: Discussion Response to Teaching: Verbalize Understanding Time/GCodes Time In: 1430 Time Out: 1500 Total Billed Treatment Time: 30 Total Billed Treatment 1, FA x2 (30m) G Codes Necessary: LUCRECIA Edmondson SENIOR STAFF ACCOUNTANT Sep 13, 2017 15:55
[2017-09-13 17:39] VITALS: BP 138/65
[2017-09-13] MEDS: LIDODERM PATCH REMOVAL TP SCH (23:01)
[2017-09-14 05:00] VITALS: BP 132/57
[2017-09-14] MEDS: RT-ALBUTEROL SULF 2.5 MG/3 ML PRE-MIX VIAL INH SCH (06:33)
--- NOTE | 2017-09-14 08:26 | Progress Note (SOAP) ---
Subjective Time Seen by Provider: 08:22 Subjective/Events-last exam Sacral fractures. Patient be discharged today. Patient to go to [facility]. Patient wants to be followed up by Dr. Tripp orthopedic. Patient to have MRI CAD and x-ray report Objective Exam Vital Signs Date Time Temp Pulse Resp B/P (MAP) Pulse Ox O2 Delivery O2 Flow Rate FiO2 09/14/17 06:34 97 Room Air 09/14/17 05:00 97.5 76 18 132/57 (82) 94 Room Air 09/13/17 20:15 Room Air 09/13/17 19:03 98 Room Air 09/13/17 17:39 96.9 72 18 138/65 (89) 96 Room Air 09/13/17 14:39 96 Room Air 09/13/17 09:00 Room Air I & O 09/14/17 07:00 Intake Total 1080 ml Balance 1080 ml Capillary Refill : General Appearance: No Apparent Distress, Thin HEENT: Normal ENT Inspection Neck: Normal Inspection Respiratory: Lungs Clear, No Accessory Muscle Use, No Respiratory Distress Cardiovascular: Regular Rate, Rhythm, No Murmur Assessment/Plan Assessment/Plan Assess & Plan/Chief Complaint Right hip problem. To be evaluated by orthopedic. . 09/07/17. Right hip problem. To have bone scan today. Waiting for results. . 09/09/17. Right hip problem. Bone scan does not show looseness some prosthesis. Patient to have MRI.. Patient states bronchitis is improving. . 09/11/17. Right hip problem. Fractures. MRI positive. No complaints about bronchitis. . 09/12/17. Sacral fractures. Breathing good. . 09/13/17. Right hip problems. Sacral fractures. no problems with bronchitis. Patient be discharged within the next few days. Patient worried . . 09/14/17. Right hip problem. Sacral fractures problems. Patient be discharged today to senior care. Patient to be seen by Dr. Tripp orthopedic Clinical Quality Measures Admission Status Admission Dx Orthopedic problem. Pain in the right hip. Bronchitis last week. Sinusitis. Loose exam with femur DVT/VTE Risk/Contraindication: Risk Factor Score Per Nursin RFS Level Per Nursing on Admit: 2=Moderate MAG LI DO Sep 14, 2017 08:26
--- NOTE | 2017-09-14 08:30 | PM & R (SOAP) Progress Note ---
Subjective This was a face to face visit with the patient. Date Seen by Provider: Sep 14, 2017 Time Seen by Provider: 07:50 Subjective/Events-last exam Patient was seen in her room this AM All set for discharge to SNU today Patient states that her brother has arranged for her to see DR Josee bro as an outpatient.Discussed case with DR calle Objective Physician Exam Last Set of Vital Signs Vital Signs Date Time Temp Pulse Resp B/P (MAP) Pulse Ox O2 Delivery O2 Flow Rate FiO2 09/14/17 06:34 97 Room Air 09/14/17 05:00 97.5 76 18 132/57 (82) Capillary Refill : I&O Intake and Output 09/14/17 00:00 Intake Total 850 ml Balance 850 ml Intake Oral 850 ml # Voids 7 # Bowel Movements 1 General: Alert, Oriented X3, Cooperative, No Acute Distress, Other (The patient is seen in her room this evening.Appreciate Therapy and DR Llanes notes) HEENT: Atraumatic, PERRLA, EOMI, Mucous Memb Moist/[place] Neck: Supple, No JVD Lungs: Clear to Auscultation Heart: Regular Rate Abdomen: Normal Bowel Sounds, No Tenderness Extremities: No Clubbing, No Cyanosis, No Edema Neuro: Other (Mild weakness at Rt hip with some guarding) Psych/Mental Status: Mental Status NL, Mood NL, Other (Patient is SBA for transfers) Results Lab Data Laboratory Tests 09/12/17 10:05: Stool Occult Blood Immunoassay NEGATIVE Assessment/Plan Assessment and Plan Discharge to [facility] today F/U with Physician there Current meds reviewed See orders Patient to have f/u with ortho on an outpatient basis (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
[2017-09-14] MEDS: VITAMIN D3 400 UNITS (CHOLECALCIFEROL) TABLET PO SCH (08:31)
[2017-09-14] MEDS: ASCORBIC ACID (VIT C) 500 MG TABLET PO SCH (08:31)
[2017-09-14] MEDS: LIDOCAINE (LIDODERM) 5% PATCH TOP SCH (09:00)
--- NOTE | 2017-09-14 11:18 | Therapy Team Discharge Summary ---
Therapy Discharge Summary Discharge Recommendations Date of Discharge Physical Therapy Patient came to rehab with lower extremity stress fracture and TTWB on the right lower extremity. Upon evaluation patient performed bed mobility with mod I, sit to stand and stand pivot transfers with SBA, car transfer CGA/[place], ambulated 40' with a rolling walker with CGA (including 10' over an uneven surface), and could go up and down 1 step using a rolling walker with max assist. Patient has been performing bed mobility and transfer training, balance and endurance training, functional strengthening, stair training, gait training, and education. 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 Now, patient performs bed mobility and transfers with mod I, ambulates 150' with a rolling walker with SBA (including 50' with at least 2 turns of 90 degrees and 10' over an uneven surface), but could not perform stairs due to bearing weight on her right leg. Patient is being discharged from this facility today and will be discharged from PT at this time. Occupational Therapy Decreased Activ Tolerance, Decreased UE Strength, Dependent Transfers, Impaired Funct Balance, Impaired Self-Care Skills PT Loader Helper Sorting Yard Goals Long-Term Goals PT Loader Helper Sorting Yard Goals Time Frame: Sep 20, 2017 Transfers (B,C,W/C) (FIM): 7 Roll Left to Right (QC): 6 Sit to Lying (QC): 6 Lying-Sitting on Side/Bed(QC): 6 Sit to Stand (QC): 6 Chair/Yig-kr-Yiyov Xfer(QC): 6 Car Transfer (QC): 6 Does the Patient Walk: Yes Gait (FIM): 5 (household exception) Gait distance (FIM): 5=754-88 ft Distance: 50 ft Walk 10 feet (QC): 6 Walk 10ft-Uneven Surface(QC): 6 Walk 50ft with 2 Turns (QC): 6 Walk 150 ft (QC): 9 (too far for her to hop) Gait Assistive Device: FWW Does the Pt use WC or Scooter?: No Stairs (FIM): 5 (household exception) # of Steps: 4 1 Step (curb) (QC): 6 4 Steps (QC): 6 12 Steps (QC): 88 Picking up an Object (QC): 4 OT Loader Helper Sorting Yard Goals Loader Helper Sorting Yard Goals Time Frame: Sep 19, 2017 Eating (FIM): 7 (met 6-7-18) Eating (QC): 6 (met 6--18) Oral Hygiene (QC): 6 (met 6-7-18) Grooming(FIM): 6 (met 6--18) Bathing(FIM): 6 (not met 6-7-18) Shower/Bathe Self (QC): 6 (not met 6-7-18) Upper Body Dressing(FIM): 6 (met 6--18) Upper Body Dressing (QC): 6 (met 6--18) Lower Body Dressing(FIM): 6 (not met 6--18) Lower Body Dressing (QC): 6 (not met 6-18) On/Off Footwear (QC): 6 (not met 6--18) Toileting(FIM): 6 (met 6-18) Toileting Hygiene (QC): 6 (met 6-18) Toilet/Commode Transfer(FIM): 6 (met 6-18) Toilet/Commode Transfer (QC): 6 (met 6--18) Shower Transfer(FIM): 6 (not met 6-18) Additional Goals: 1-Demonstrate ADL Tasks, 2-Verbalize Understanding, 3- ImproveStrength/Félix 1=Demonstrate adherence to instructed precautions during ADL tasks. 2=Patient will verbalize/demonstrate understanding of assistive devices/ modifications for ADL. 3=Patient will improve strength/tolerance for activity to enable patient to perform ADL's. EVONNE RODRIGUEZ PT Sep 14, 2017 11:18
[2017-09-14 13:23] VITALS: BP 132/57
--- NOTE | 2017-09-14 15:00 | Therapy Team Discharge Summary ---
Therapy Discharge Summary Discharge Recommendations Date of Discharge Sep 14, 2017 at 11:30 Occupational Therapy Pt was seen for skilled OT to increase her independence in basic self care after she was given weight bearing restrictions for R LE. On admission she was able to feed herself independently, grooming with SBA, bathe with min assist, dress with setup for upper body and min assist for lower body, toilet with min assist and complete toilet transfers with min assist as well. By discharge she had progressed to being independent with eating, modified independent with grooming, upper body dressing, toileting and toilet transfers, setup for bathing and supervision for lower body dressing. Equipment used included dressing stick, sock aid, rn midwife, long handled sponge, shower bench, grab bars , BSC, FWW. See tx plan for goals met. recommend cont OT in skilled setting. DC OT. Decreased Activ Tolerance, Decreased UE Strength, Dependent Transfers, Impaired Funct Balance, Impaired Self-Care Skills PT Group Home Goals Acid Retort Operator Goals PT Acid Retort Operator Goals Time Frame: Sep 20, 2017 Transfers (B,C,W/C) (FIM): 7 Roll Left to Right (QC): 6 Sit to Lying (QC): 6 Lying-Sitting on Side/Bed(QC): 6 Sit to Stand (QC): 6 Chair/Jad-ct-Oelzm Xfer(QC): 6 Car Transfer (QC): 6 Does the Patient Walk: Yes Gait (FIM): 5 (household exception) Gait distance (FIM): 5=214-87 ft Distance: 50 ft Walk 10 feet (QC): 6 Walk 10ft-Uneven Surface(QC): 6 Walk 50ft with 2 Turns (QC): 6 Walk 150 ft (QC): 9 (too far for her to hop) Gait Assistive Device: FWW Does the Pt use WC or Scooter?: No Stairs (FIM): 5 (household exception) # of Steps: 4 1 Step (curb) (QC): 6 4 Steps (QC): 6 12 Steps (QC): 88 Picking up an Object (QC): 4 OT Group Home Goals Acid Retort Operator Goals Time Frame: Sep 19, 2017 Eating (FIM): 7 (met 6-7-18) Eating (QC): 6 (met 6-7-18) Oral Hygiene (QC): 6 (met 6-7-18) Grooming(FIM): 6 (met 6--18) Bathing(FIM): 6 (not met 6--18) Shower/Bathe Self (QC): 6 (not met 6--18) Upper Body Dressing(FIM): 6 (met 6--18) Upper Body Dressing (QC): 6 (met 6--18) Lower Body Dressing(FIM): 6 (not met 6-18) Lower Body Dressing (QC): 6 (not met 6-18) On/Off Footwear (QC): 6 (not met 6--18) Toileting(FIM): 6 (met 6-18) Toileting Hygiene (QC): 6 (met 6-18) Toilet/Commode Transfer(FIM): 6 (met 6-18) Toilet/Commode Transfer (QC): 6 (met 6-18) Shower Transfer(FIM): 6 (not met 618) Additional Goals: 1-Demonstrate ADL Tasks, 2-Verbalize Understanding, 3- ImproveStrength/Félix 1=Demonstrate adherence to instructed precautions during ADL tasks. 2=Patient will verbalize/demonstrate understanding of assistive devices/ modifications for ADL. 3=Patient will improve strength/tolerance for activity to enable patient to perform ADL's. EUNICE DONNELLY OT Sep 14, 2017 15:00
== END 2017-09-14 11:30 | DRG 544 ==
PROVIDERS: ADMIT Family Medicine; ATTEND Physical Medicine & Rehabilitation
DX: M80.051A Age-related osteoporosis with current pathological fracture, right femur, initial encounter for fracture (principal); M80.052A Age-related osteoporosis with current pathological fracture, left femur, initial encounter for fracture; I10 Essential (primary) hypertension; J40 Bronchitis, not specified as acute or chronic; R07.89 Other chest pain; B35.1 Tinea unguium; G60.9 Hereditary and idiopathic neuropathy, unspecified; G57.81 Other specified mononeuropathies of right lower limb; M20.41 Other hammer toe(s) (acquired), right foot; M20.42 Other hammer toe(s) (acquired), left foot; M19.90 Unspecified osteoarthritis, unspecified site
CPT/HCPCS: 36415; 71046; 72195; 78315; 80053; 82274; 85027; 93005; 93306; 94640; 94760

== ENCOUNTER → 2017-09-28 | Outpatient (CLI) | payer MEDICARE, MEDICAID ==
[~2017-09-28] MED LIST: ASCO-262 PO; CALC-472 PO; CHOL400C9 PO; Lidocaine TOP; VITA1TAB17 PO
--- NOTE | 2017-09-28 13:46 | Diagnostic Imaging Report ---
INDICATION: Right wrist injury FINDINGS: Three views of the right wrist show degenerative changes of the joint space between the scaphoid and trapezoid. Other joint spaces are relatively well preserved. There is no fracture or dislocation. 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 No acute abnormality is seen. Dictated by: Dictated on workstation # [id number]
== END ==
LOC: RAD 13:17
PROVIDERS: ATTEND Family Medicine
DX: S69.91XA Unspecified injury of right wrist, hand and finger(s), initial encounter (principal); M19.031 Primary osteoarthritis, right wrist
CPT/HCPCS: 73110